=== PATIENT | female | born 1935 | race Hispanic/Latino ===

== ENCOUNTER 2018-07-17 16:27 | Inpatient (IN) | payer MEDICARE, OTHER ==
[2018-07-17 16:41] VITALS: BMI 29.9
--- NOTE | 2018-07-17 17:53 | ED PDOC ---
Arrival/HPI - General Chief Complaint: Medical Clearance Time Seen by Provider: 07/17/18 17:14 Historian: Patient - History of Present Illness Narrative History of Present Illness (Text): 07/17/18 18:07 82 yr old female w/ hx of hysterectomy, appendectomy, R knee replacement, diverticulitis 4 weeks prior and recent shingles w/ famicovir rx p/w hypotension , sent in from Dr's office. Pt went to PMD office today for first time- Dr. Ricci and was sent to ER due to hypotension 80/50s, belly pain, and nausea. Pt states she has not had a BM since friday, last BM was non-bloody and non dark. Pt notes she has also had nausea, with vomiting over the same time period. She notes she has not urinated in 2d as well. She denies any bloody discharge or dysuria. She notes that last week she had an itchiness around her throat, bilaterally on her neck and she saw her reproductive healthcare assistant in [place]. She denies any rash at any point in time, but was started on Famicicovir 2d prior. Ever since she started famicicovir she notes her current symptoms started. She notes mild cp, but no sob, no orthopnea, pnd or leg swelling. No fever, chills or night sweats. No vaginal d/c. No other complaints. Time/Duration: Other (2d) Symptom Onset: Gradual Past Medical History - Cardiac Hx Cardiac Disorders: Yes ("heart skips a beat") Hx Pacemaker: No - Pulmonary Hx Respiratory Disorders: No - Neurological Hx Neurological Disorder: No Hx Paralysis: No - HEENT Hx HEENT Disorder: Yes (glasses) - Hematological/Oncological Hx Blood Transfusions: No Hx Blood Transfusion Reaction: No - Integumentary Other/Comment: surgical incision lower abd - Musculoskeletal/Rheumatological Hx Musculoskeletal Disorders: No - Gastrointestinal Hx Gastrointestinal Disorders: Yes (DIVERTICULITIS,CONSTIPATION,GERD,) - Genitourinary/Gynecological Hx Genitourinary Disorders: No Hx Reproductive Disorders: No - Psychiatric Hx Emotional Abuse: No Hx Physical Abuse: No Hx Substance Use: No - Surgical History Hx Appendectomy: Yes Hx Orthopedic Surgery: Yes (right knee replacement 2010) - Anesthesia Hx Anesthesia Reactions: Yes (N/V AFTER 1ST D&C) Hx Malignant Hyperthermia: No - Suicidal Assessment Feels Threatened In Home Enviroment: No Family/Social History Family/Social History: Unknown Family HX Smoking Status: Former Smoker Hx Alcohol Use: No Hx Substance Use: No Allergies/Home Meds Allergies/Adverse Reactions: Allergies Penicillins Allergy (Severe, Verified 11/12/16 08:10) SWELLING Sulfa (Sulfonamide Antibiotics) Allergy (Intermediate, Verified 11/12/16 08:10) RASH Home Medications: Home Meds Medication Instructions Recorded Confirmed Esomeprazole Magnesium [Nexium] 20 mg PO QOTHERDAY 08/26/14 01/28/17 Fluticasone/Vilanterol [Breo 1 each IH DAILY 11/12/16 01/28/17 Ellipta 100-25 Mcg INH] Ranitidine HCl [Zantac] 150 mg PO QOTHERDAY 01/23/17 01/28/17 Review of Systems - Review of Systems Constitutional: Normal Eyes: Normal ENT: Normal Respiratory: Normal Cardiovascular: Chest Pain Gastrointestinal: Abdominal Pain, Constipation, Nausea Genitourinary Female: Urine Output Changes Musculoskeletal: Normal Skin: Normal Neurological: Normal Endocrine: Normal Hemo/Lymphatic: Normal Psychiatric: Normal Physical Exam Vital Signs Temp Pulse Resp BP Pulse Ox 07/17/18 21:04 98 H 18 130/65 97 07/17/18 19:45 98.3 F 104 H 18 127/67 95 07/17/18 18:44 98.6 F 107 H 20 96 07/17/18 16:39 98.5 F 110 H 20 104/57 L 96 Temperature: Afebrile Blood Pressure: Normal Pulse: Regular Respiratory Rate: Normal Appearance: Positive for: Well-Appearing, Non-Toxic, Comfortable Pain Distress: None Mental Status: Positive for: Alert and Oriented X 3 - Systems Exam Head: Present: Atraumatic, Normocephalic Pupils: Present: PERRL Extroacular Muscles: Present: EOMI Conjunctiva: Present: Normal Mouth: Present: Moist Mucous Membranes Neck: Present: Normal Range of Motion Respiratory/Chest: Present: Clear to Auscultation, Good Air Exchange. No: Respiratory Distress, Accessory Muscle Use Cardiovascular: Present: Regular Rate and Rhythm, Normal S1, S2. No: Murmurs Abdomen: Present: Tenderness (diffuse abdominal pain), Distention. No: Peritoneal Signs Back: Present: Normal Inspection Upper Extremity: Present: Normal Inspection. No: Cyanosis, Edema Lower Extremity: Present: Normal Inspection. No: Edema Neurological: Present: GCS=15, CN II-XII Intact, Speech Normal Skin: Present: Warm, Dry, Normal Color. No: Rashes Psychiatric: Present: Alert, Oriented x 3, Normal Insight, Normal Concentration Medical Decision Making ED Course and Treatment: 07/17/18 18:19 82 yr old female w/ hx of appendectomy, hysterectomy, hx of diverticulitis and shingles p/w abd pain, distension, hypotension, constipation and anuria. Pressures improved. Will seek imaging and labs. ?constipation/sbo given constipation. No hx of HTN, no bounding abdomen on exam, but will ct to examine for AAA. ?FOX given anuria ,vomiting. Pending imaging and blood work. EKG: Ordered, reviewed, and independently interpreted the EKG. Rate : 103 BPM Rhythm : Sinus tachycardia. Interpretation : No ST-segment elevations or depressions, no T-wave inversions, normal intervals. Comparison : No previous EKG for comparison. 07/17/18 19:23 SIRS+- Sepsis code called. Penicillin allergy: Azactam and vanc ordered. Penicillin allergy. Cr. 1.8- CT changed to non-con BNP 2000+ fluids d/c- 07/17/2018 20:32 Abd/Pelvis CT IMPRESSION: 1. There are large gallstone with soft tissue density within the gallbladder, there is slight pericholecystic infiltration of fat. The findings are concerning for cholecystitis. Ultrasound correlation is recommended. 2. Small amount of free fluid in the cul-de-sac. Dictator: Susana Verdugo MD Appreciate consult w/ Surgery- to see pt. Seen by surgical coordinator: US ordered. Appreciate consult w/ Dr. Ricci: to admit to her service under tele. Feroz giordano to follow as surgeon. Consult placed. harsha Otto ordered per PMD request. - Lab Interpretations Lab Results: 07/17/18 18:41 07/17/18 18:41 Lab Results 07/17/18 18:41: TSH 3rd Generation 0.48 07/17/18 18:41: Sodium 132, Chloride 93 L, Potassium 4.4, Carbon Dioxide 25, Anion Gap 18, BUN 23 H, Creatinine 1.8 H, Est GFR ( Amer) 33, Est GFR ( Non-Af Amer) 27, Random Glucose 107, Calcium 9.3, Magnesium 1.8, Total Bilirubin 1.7 H, AST 32, ALT 15, Alkaline Phosphatase 73, Troponin I < 0.01, NT- Pro-B Natriuret Pep 2460 H, Total Protein 8.2, Albumin 4.4, Globulin 3.8, Albumin/Globulin Ratio 1.2, Lipase 26 07/17/18 18:41: pO2 35, VBG pH 7.34, VBG pCO2 53.0, VBG HCO3 28.6 H, VBG Total CO2 30.2 H, VBG O2 Sat (Calc) 54.4, VBG Base Excess 1.8, VBG Potassium 4.8, Sodium 129.0 L, Chloride 95.0 L, Glucose 111 H, Lactate 1.8, FiO2 21.0, Venous Blood Potassium 4.8 07/17/18 18:41: WBC 25.8 H* D, RBC 5.22, Hgb 12.9, Hct 39.0, MCV 74.7 L, MCH 24.7 L, MCHC 33.1, RDW 20.1 H, Plt Count 258, Gran % 81.5 H, Lymph % (Auto) 8.8 L, [place] % (Auto) 9.6 H, Eos % (Auto) 0.0 L, Baso % (Auto) 0.1, Gran # 21.07 H, Lymph # (Auto) 2.3, [place] # (Auto) 2.5 H, Eos # (Auto) 0.0, Baso # (Auto) 0.02 - RAD Interpretation Radiology Orders: 07/17/18 17:46 CHEST TWO VIEWS (PA/LAT) [RAD] Stat 07/17/18 19:19 ABD & PELVIS W/O PO OR IV CONT [CT] Stat 07/17/18 20:43 GALL BLADDER [US] Stat - Medication Orders Current Medication Orders: Ciprofloxacin (Cipro 400mg/200ml Dsw) 400 mg in 200 mls @ 133.3 mls/hr IVPB Q12 ROSALINDA PRN Reason: Protocol Stop: 07/17/18 23:31 Metronidazole (Flagyl) 500 mg in 100 mls @ 100 mls/hr IVPB STAT STA PRN Reason: Protocol Stop: 07/17/18 22:22 Ciprofloxacin (Cipro 400mg/200ml Dsw) 400 mg in 200 mls @ 133.3 mls/hr IVPB Q12 ROSALINDA PRN Reason: Protocol Stop: 07/18/18 11:31 Metronidazole (Flagyl) 500 mg in 100 mls @ 100 mls/hr IVPB Q8 ROSALINDA PRN Reason: Protocol Stop: 07/21/18 06:01 Lactated Ringer's (Lactated Ringer's) 1,000 mls @ 100 mls/hr IV .Q10H ROSALINDA Sodium Chloride (Sodium Chloride 0.9%) 500 mls @ 999 mls/hr IV .Q31M STA Stop: 07/17/18 22:02 Morphine Sulfate (Morphine) 2 mg IVP Q4H PRN PRN Reason: Pain, moderate (4-7) Ondansetron HCl (Zofran Inj) 4 mg IVP Q4H PRN PRN Reason: Nausea/Vomiting Discontinued Medications Sodium Chloride (Sodium Chloride 0.9%) 250 mls @ 50 mls/hr IV .Q5H [facility] Last Admin: 07/17/18 18:30 Dose: 50 mls/hr eMAR Start Stop Document 07/17/18 18:30 (Rec: 07/17/18 18:30 [email or web address] Intravenous Solution Start Date 07/17/18 Start Time 18:30 Aztreonam (Azactam 1 Gm) 100 mls @ 100 mls/hr IVPB STAT STA PRN Reason: Protocol Stop: 07/17/18 20:18 Last Admin: 07/17/18 19:44 Dose: 100 mls/hr eMAR Start Stop Document 07/17/18 19:44 (Rec: 07/17/18 19:44 [email or web address] Intravenous Solution Start Date 07/17/18 Start Time 19:44 Vancomycin HCl (Vancomycin 1gm) 1 gm in 250 mls @ 167 mls/hr IVPB STAT STA PRN Reason: Protocol Stop: 07/17/18 20:48 Ondansetron HCl (Zofran Inj) 4 mg IVP STAT STA Stop: 07/17/18 18:09 Last Admin: 07/17/18 18:29 Dose: 4 mg IVP Administration Document 07/17/18 18:29 (Rec: 07/17/18 18:29 [email or web address] Charges for Administration # of IVP Administrations 1 Disposition/Present on Arrival - Present on Arrival Any Indicators Present on Arrival: No History of DVT/PE: No History of Uncontrolled Diabetes: No Urinary Catheter: Yes (inserted in or) History of Decub. Ulcer: No History Surgical Site Infection Following: None - Disposition Have Diagnosis and Disposition been Completed?: Yes Diagnosis: Sepsis Disposition Time: 20:32 Patient Plan: Admission Condition: FAIR
[2018-07-17] MEDS ORDERED: Iohexol 240 (50 ml) ONE (17:57)
[2018-07-17] MEDS ORDERED: Sodium Chloride 0.9% 250 ML IV SCH (18:00)
[2018-07-17 18:50] LABS: VENOUS BLOOD GAS BASE EXCESS 1.8 mmol/L (0.0-2.0); VENOUS BLOOD GAS PO2 35 mm/Hg (30-55); VENOUS BLOOD PH 7.34 (7.32-7.43)
[2018-07-17 18:58] LABS: BASO # 0.02 K/mm3 (0.0-2.0); BASO % 0.1 % (0.0-3.0); GRAN # 21.07 (1.4-6.5); GRAN % 81.5 % (50.0-68.0); HEMOGLOBIN 12.9 g/dL (12.0-16.0); LYMPH # 2.3 (1.2-3.4); LYMPH % 8.8 % (22.0-35.0); MEAN CELL VOLUME 74.7 fl (80.0-105.0); MEAN CORPUSCULAR HEMOGLOBIN 24.7 pg (25.0-35.0); MEAN CORPUSCULAR HGB CONC 33.1 g/dl (31.0-37.0); MONO # 2.5 (0.1-0.6); MONO % 9.6 % (1.0-6.0); PLATELET COUNT 258 10^3/uL (120.0-450.0); RBC 5.22 10^6/uL (3.5-6.1); RED CELL DISTRIBUTION WIDTH 20.1 % (11.5-14.5)
[2018-07-17 19:01] LABS: WHITE BLOOD COUNT 25.8 10^3/ul (4.5-11.0)
[2018-07-17 19:02] LABS: ALB/GLOB RATIO 1.2 (1.1-1.8); ALBUMIN 4.4 g/dL (3.0-4.8); CALCIUM 9.3 mg/dL (8.4-10.5); GFR NON-AFRICAN AMERICAN 27; LIPASE 26 U/L (23-300)
[2018-07-17 19:08] LABS: ALT/SGPT 15 U/L (7-56); AST/SGOT 32 U/L (14-36); BLOOD UREA NITROGEN 23 mg/dL (7-21)
[2018-07-17 19:14] LABS: B-TYPE NATRIURETIC PEPTIDE 2460 pg/mL (0-450); TROPONIN I < 0.01 ng/mL
[2018-07-17] MEDS ORDERED: Iohexol 350 MG/100 ML VIAL ONE (19:16)
[2018-07-17] MEDS ORDERED: Vancomycin 1gm in NS 250ml 1 GM/250 ML BAG IVPB STA (19:19)
[2018-07-17] MEDS ORDERED: Aztreonam 1 Gm in NS 100mL 100 ML IVPB STA (19:19)
[2018-07-17] MEDS ORDERED: metroNIDAZOLE IV 500 mg/100 ml 500 MG/100 ML BAG IVPB STA (21:23)
[2018-07-17] MEDS ORDERED: Sodium Chloride 0.9% 500 ML IV STA (21:32)
[2018-07-17] MEDS ORDERED: Morphine 2 mg/ml ISec IVP PRN (21:44)
[2018-07-17] MEDS ORDERED: Lactated Ringer's 1,000 ML IV SCH (21:45)
--- NOTE | 2018-07-17 21:46 | CP.PCM.CON ---
<Jayshree Blue - Last Filed: 07/18/18 08:09> History of Present Illness - History of Present Illness History of Present Illness: Surgery Consult: Dr. Zavala Pt is an 82F with PMHx significant for diverticulosis & asthma who [place] [facility] [place] complaints of abdominal pain & nausea/vomiting x 4 days. Pt states she was started on an antiviral medication last week for possible shingles due to having generalized itching but no rash. However, starting Friday she started having episodes of abdominal pain with nausea and several episodes of vomiting that continued as the week progressed. She reports several episodes of non- bloody, non-bilious vomiting and inability to tolerate PO intake. Pt went to her PMD Dr. Ricci's office today and was found to be hypotensive and sent to the ER. In the ER, pt found to have a WBC of 25.[address] abdomen/pelvis concerning for acute cholecystitis. Surgery called to evaluate. Currently, pt is resting comfortably in her bed. Blood pressure improved since arrival to the ER with current reading of 130/87. Pt states she feels a little better and her last episode of vomiting was 2 hrs prior when she drank contrast. Pt states her recent colonoscopy was last month and only showed diverticulosis. Denies fevers , chills, chest pain or SOB. PMHx: diverticulosis, asthma PSHx: appendectomy, hysterectomy, R knee replacement SocialHx: former smoker, quit 30yrs ago, denies EtOH/drugs ALL: PCN, Sulfa Review of Systems - Review of Systems All systems: reviewed and no additional remarkable complaints except (as per HPI ) Past Patient History - Past Social History Smoking Status: Former Smoker - CARDIAC Hx Cardiac Disorders: Yes ("heart skips a beat") Hx Pacemaker: No - PULMONARY Hx Asthma: Yes - NEUROLOGICAL Hx Neurological Disorder: No Hx Paralysis: No - HEENT Hx HEENT Problems: Yes (glasses) - HEMATOLOGICAL/ONCOLOGICAL Hx Blood Transfusions: No Hx Blood Transfusion Reaction: No - INTEGUMENTARY Other/Comment: surgical incision lower abd - MUSCULOSKELETAL/RHEUMATOLOGICAL Hx Musculoskeletal Disorders: No - GASTROINTESTINAL Hx Gastrointestinal Disorders: Yes (DIVERTICULITIS,CONSTIPATION,GERD,) - GENITOURINARY/GYNECOLOGICAL Hx Genitourinary Disorders: No Hx Reproductive Disorders: No - PSYCHIATRIC Hx Emotional Abuse: No Hx Physical Abuse: No Hx Substance Use: No - SURGICAL HISTORY Hx Appendectomy: Yes Hx Orthopedic Surgery: Yes (right knee replacement 2010) - ANESTHESIA Hx Anesthesia Reactions: Yes (N/V AFTER 1ST D&C) Hx Malignant Hyperthermia: No Meds Allergies/Adverse Reactions: Allergies Allergy/AdvReac Type Severity Reaction Status Date / Time Penicillins Allergy Severe SWELLING Verified 11/12/16 08:10 Sulfa (Sulfonamide Allergy Intermediate RASH Verified 11/12/16 08:10 Antibiotics) - Medications Medications: Current Medications Ciprofloxacin (Cipro 400mg/200ml Dsw) 400 mg in 200 mls @ 133.3 mls/hr IVPB Q12 ROSALINDA PRN Reason: Protocol Stop: 07/17/18 23:31 Metronidazole (Flagyl) 500 mg in 100 mls @ 100 mls/hr IVPB STAT STA PRN Reason: Protocol Stop: 07/17/18 22:22 Ciprofloxacin (Cipro 400mg/200ml Dsw) 400 mg in 200 mls @ 133.3 mls/hr IVPB Q12 ROSALINDA PRN Reason: Protocol Stop: 07/21/18 10:01 Metronidazole (Flagyl) 500 mg in 100 mls @ 100 mls/hr IVPB Q8 ROSALINDA PRN Reason: Protocol Stop: 07/21/18 06:01 Lactated Ringer's (Lactated Ringer's) 1,000 mls @ 100 mls/hr IV .Q10H ROSALINDA Sodium Chloride (Sodium Chloride 0.9%) 500 mls @ 999 mls/hr IV .Q31M STA Stop: 07/17/18 22:02 Physical Exam - Constitutional Appears: Well, No Acute Distress - Head Exam Head Exam: ATRAUMATIC, NORMOCEPHALIC - Eye Exam Eye Exam: Normal appearance - ENT Exam ENT Exam: Mucous Membranes Moist - Respiratory Exam Respiratory Exam: NORMAL BREATHING PATTERN - Cardiovascular Exam Cardiovascular Exam: Tachycardia - GI/Abdominal Exam GI & Abdominal Exam: Soft, Tenderness (generalized ). absent: Distended, Guarding, Rebound - Neurological Exam Neurological exam: Alert, Oriented x3 - Skin Skin Exam: Dry, Warm Results - Vital Signs Recent Vital Signs: Last Vital Signs Temp 98.3 F 07/17/18 19:45 Pulse 98 H 07/17/18 21:04 Resp 18 07/17/18 21:04 BP 130/65 07/17/18 21:04 Pulse Ox 97 07/17/18 21:04 - Labs Result Diagrams: 07/18/18 06:00 07/18/18 06:00 Labs: Laboratory Results - last 24 hr 07/17/18 07/17/18 07/17/18 18:41 18:41 18:41 WBC 25.8 H* D RBC 5.22 Hgb 12.9 Hct 39.0 MCV 74.7 L MCH 24.7 L MCHC 33.1 RDW 20.1 H Plt Count 258 Gran % 81.5 H Lymph % (Auto) 8.8 L [place] % (Auto) 9.6 H Eos % (Auto) 0.0 L Baso % (Auto) 0.1 Gran # 21.07 H Lymph # (Auto) 2.3 [place] # (Auto) 2.5 H Eos # (Auto) 0.0 Baso # (Auto) 0.02 pO2 35 VBG pH 7.34 VBG pCO2 53.0 VBG HCO3 28.6 H VBG Total CO2 30.2 H VBG O2 Sat (Calc) 54.4 VBG Base Excess 1.8 VBG Potassium 4.8 Sodium 129.0 L 132 Chloride 95.0 L 93 L Glucose 111 H Lactate 1.8 FiO2 21.0 Potassium 4.4 Carbon Dioxide 25 Anion Gap 18 BUN 23 H Creatinine 1.8 H Est GFR ( Amer) 33 Est GFR (Non-Af Amer) 27 Random Glucose 107 Calcium 9.3 Magnesium 1.8 Total Bilirubin 1.7 H AST 32 ALT 15 Alkaline Phosphatase 73 Troponin I < 0.01 NT-Pro-B Natriuret Pep 2460 H Total Protein 8.2 Albumin 4.4 Globulin 3.8 Albumin/Globulin Ratio 1.2 Lipase 26 TSH 3rd Generation Venous Blood Potassium 4.8 07/17/18 18:41 WBC RBC Hgb Hct MCV MCH MCHC RDW Plt Count Gran % Lymph % (Auto) [place] % (Auto) Eos % (Auto) Baso % (Auto) Gran # Lymph # (Auto) [place] # (Auto) Eos # (Auto) Baso # (Auto) pO2 VBG pH VBG pCO2 VBG HCO3 VBG Total CO2 VBG O2 Sat (Calc) VBG Base Excess VBG Potassium Sodium Chloride Glucose Lactate FiO2 Potassium Carbon Dioxide Anion Gap BUN Creatinine Est GFR ( Amer) Est GFR (Non-Af Amer) Random Glucose Calcium Magnesium Total Bilirubin AST ALT Alkaline Phosphatase Troponin I NT-Pro-B Natriuret Pep Total Protein Albumin Globulin Albumin/Globulin Ratio Lipase TSH 3rd Generation 0.48 Venous Blood Potassium - Imaging and Cardiology CT scan - abdomen Status: Image reviewed by me Assessment & Plan - Assessment and Plan (Free Text) Assessment: 82F with acute cholecystitis Plan: - IVF, IV ABX - Keep NPO - Insert Cardoso and monitor strict Is & Os - Monitor WBC and T bili, AM labs ordered - f/u US of the - d/w Dr. Lucas Blue <Feroz Zavala - Last Filed: 07/20/18 10:12> Meds - Medications Medications: Current Medications Pantoprazole Sodium (Protonix 40mg Ivpb) 40 mg in 100 mls @ 200 mls/hr IVPB 0600 [facility] Last Admin: 07/20/18 05:33 Dose: 200 mls/hr Meropenem (Merrem Iv 1 Gm Premix) 50 mls @ 100 mls/hr IVPB Q12 ROSALINDA PRN Reason: Protocol Stop: 07/27/18 10:01 Last Admin: 07/19/18 21:25 Dose: 100 mls/hr Lactated Ringer's (Lactated Ringer's) 1,000 mls @ 75 mls/hr IV .[id number] [facility] Last Admin: 07/20/18 05:34 Dose: 75 mls/hr Morphine Sulfate (Morphine) 2 mg IVP Q4H PRN PRN Reason: Pain, moderate (4-7) Ondansetron HCl (Zofran Inj) 4 mg IVP Q4H PRN PRN Reason: Nausea/Vomiting Results - Vital Signs Recent Vital Signs: Last Vital Signs Temp 99 F 07/20/18 06:00 Pulse 84 07/20/18 06:00 Resp 20 07/20/18 06:00 BP 121/61 07/20/18 06:00 Pulse Ox 92 L 07/20/18 06:00 - Labs Result Diagrams: 07/20/18 06:50 07/20/18 06:50 Labs: Laboratory Results - last 24 hr 07/20/18 07/20/18 06:50 06:50 WBC 8.7 D RBC 3.94 Hgb 9.3 L Hct 29.7 L MCV 75.4 L MCH 23.6 L MCHC 31.3 RDW 19.7 H Plt Count 175 MPV 9.5 Gran % 73.5 H Lymph % (Auto) 9.6 L [place] % (Auto) 15.8 H Eos % (Auto) 0.9 L Baso % (Auto) 0.2 Gran # 6.35 Lymph # (Auto) 0.8 L [place] # (Auto) 1.4 H Eos # (Auto) 0.1 Baso # (Auto) 0.02 Sodium 136 Potassium 4.4 Chloride 103 Carbon Dioxide 26 Anion Gap 11 BUN 20 Creatinine 1.0 Est GFR ( Amer) > 60 Est GFR (Non-Af Amer) 53 Random Glucose 92 Calcium 8.0 L Phosphorus 2.7 Magnesium 1.9 Total Bilirubin 1.2 AST 78 H D ALT 68 H Alkaline Phosphatase 72 Total Protein 5.7 L Albumin 2.7 L Globulin 3.0 Albumin/Globulin Ratio 0.9 L Assessment & Plan - Assessment and Plan (Free Text) Assessment: Dx Sepsis- Cholecystitis/UTI Pt knew of gallstones 2 years ago but did not have any c/o Plan: Conservative Rx IF possible/IV [id number] evaluation This consult done under my direct supervision Dayo Zavala MD FACS
[2018-07-17] MEDS ORDERED: Ciprofloxacin 400mg/200ml D5W 400 MG/200 ML BAG IVPB SCH (22:00)
[2018-07-17 22:01] LABS: VENOUS BLOOD GAS BASE EXCESS 0.3 mmol/L (0.0-2.0); VENOUS BLOOD GAS PO2 36 mm/Hg (30-55); VENOUS BLOOD PH 7.35 (7.32-7.43)
[2018-07-17 22:06] LABS: PH,URINE 5.5 (4.7-8.0); URINE BILIRUBIN SMALL (NEGATIVE); URINE BLOOD LARGE (NEGATIVE); URINE GLUCOSE (UA) NEGATIVE (NEGATIVE); URINE LEUKOCYTE ESTERASE MODERATE Leu/uL (NEGATIVE); URINE PROTEIN 100 mg/dL (<30 mg/dL); URINE UROBILINOGEN 0.2 E.U./dL (<1 E.U./dL)
[2018-07-17 22:08] LABS: URINE APPEARANCE CLOUDY (CLEAR); URINE COLOR DARK YELLOW (YELLOW)
[2018-07-17 22:23] LABS: URINE BACTERIA MANY (NEG); URINE RBC 20 - 25 /hpf (0-2); URINE WBC 25 - 30 /hpf (0-6)
--- NOTE | 2018-07-18 03:22 | HP ---
Copied To: Shawna Ricci MD Attending MD: Shawna Ricci MD HISTORY OF PRESENT ILLNESS: The patient is 82 years old, who was seen in my office first time, complained of feeling very weak, dizzy, lightheaded. She states she was having pain in her right flank. She went to see Dr. Lamar who thought she has shingles, gave her Famvir along with ibuprofen and hydroxyzine. The patient states she did not feel any relief, she started to have nausea, unable to hold any food for last two to three days, decreased appetite, was having chills at night, so she decided to come to emergency room. The patient states she was feeling weak and dizzy that is why she did not drive to my office. She took a cab from [place] to see me. The patient states usually she is very healthy and very energetic, but feels very drained and has generalized weakness. Complained of nausea, poor appetite, abdominal discomfort. PAST MEDICAL HISTORY: Significant for, 1. Diverticulosis. 2. Status post appendectomy. 3. Status post hysterectomy. 4. Gastritis. ALLERGIES: SHE IS ALLERGIC TO PENICILLIN AND SULFA DRUGS. MEDICATION AT HOME: She only takes Zantac, Breo and Nexium as needed. Currently, she is on Famvir and hydroxyzine. SOCIAL HISTORY: She lives by herself. Denies smoking, used to be a heavy smoker in the past, but quit 30 years ago. Socially drinks. PHYSICAL EXAMINATION: GENERAL: She looks pale, dehydrated. VITAL SIGNS: She is afebrile; pulse 104; respirations 20; blood pressure in the office was 80/60, in the ER, it was found to be 104/57. LUNGS: Bilateral good airflow. No rhonchi or crackle. HEART: S1 and S2 audible. ABDOMEN: Soft, but has palpable discomfort in all quadrants including right upper quadrant, left upper quadrant, left lower quadrant and suprapubic discomfort. NEUROLOGICAL: She is awake, alert, oriented, communicative, ambulatory. EXTREMITIES: Bilateral leg, no edema. LABORATORY EXAM: WBC is 25.8, hemoglobin 12.9, hematocrit 39, platelets of 258. Chemistry: Sodium 132, potassium 4.4, chloride 93, CO2 of 25, BUN 23, creatinine 1.8, blood sugar of 107. Total bili 1.7. BNP 2460. CT scan of the abdomen and pelvis done that shows cholelithiasis. ASSESSMENT: 1. Abdominal pain, rule out cholecystitis, rule out diverticulitis. 2. Chronic anemia. 3. Dehydration. PLAN: The patient will be admitted on telemetry. We will start IV fluids, IV antibiotics. Blood cultures, urine cultures are done. Get surgical consult. We will follow up electrolytes in the a.m. We will follow up the patient in the a.m. Shawna Ricci MD
--- NOTE | 2018-07-18 04:20 | PCM.SEPTIC ---
Sepsis Progress Note - Reassessment Type Date of Evaluation: 07/18/18 Time of Evaluation: 00:20 Reassessment Type: Non-invasive reassessment - Non Invasive Reassessment Were the most recent vital sign reviewed: Yes Vital Sign (Latest): Temp Pulse Resp BP Pulse Ox 98.9 F 100 H 20 122/73 95 07/18/18 00:01 07/18/18 02:00 07/18/18 00:01 07/18/18 00:01 07/18/18 00:01 Cardiovascular: Yes: Regular Rate, Rhythm Respiratory: Yes: Normal Breath Sounds Capillary Refill: Normal (Less than 2 sec) Pulses: Normal Radial, Normal Dorsalis Pedis, Normal Posterior Tibialis Skin: Warm, Dry, Pale Was a passive leg raise performed or was a fluid challenge performed within 6 hrs of the initial fluid bolus: No Fluid Challenge performed: No
[2018-07-18] MEDS: Lactated Ringer's 1,000 ML IV SCH ×3 (05:30→18:05)
[2018-07-18] MEDS: Pantoprazole 40mg/100mL NS 40 MG/100 ML BAG IVPB SCH (05:57)
[2018-07-18] MEDS ORDERED: metroNIDAZOLE IV 500 mg/100 ml 500 MG/100 ML BAG IVPB SCH (06:00)
[2018-07-18 07:09] LABS: BASO # 0.01 K/mm3 (0.0-2.0); BASO % 0.1 % (0.0-3.0); EOS % 0.2 % (1.5-5.0); GRAN # 15.91 (1.4-6.5); GRAN % 80.2 % (50.0-68.0); HEMOGLOBIN 11.4 g/dL (12.0-16.0); LYMPH # 0.9 (1.2-3.4); LYMPH % 4.6 % (22.0-35.0); MEAN CELL VOLUME 73.9 fl (80.0-105.0); MEAN CORPUSCULAR HEMOGLOBIN 24.2 pg (25.0-35.0); MEAN CORPUSCULAR HGB CONC 32.7 g/dl (31.0-37.0); MEAN PLATELET VOLUME 11.2 fl (7.0-11.0); MONO % 14.9 % (1.0-6.0); PLATELET COUNT 184 10^3/uL (120.0-450.0); RBC 4.72 10^6/uL (3.5-6.1); RED CELL DISTRIBUTION WIDTH 19.7 % (11.5-14.5); WHITE BLOOD COUNT 19.8 10^3/ul (4.5-11.0)
[2018-07-18 07:27] LABS: ALB/GLOB RATIO 1.1 (1.1-1.8); CALCIUM 8.3 mg/dL (8.4-10.5)
[2018-07-18 09:08] LABS: NEUTROPHIL 81 % (50.0-70.0)
[2018-07-18 09:09] LABS: ANISOCYTOSIS 1+; ATYPICAL LYMPHOCYTE 2 % (0.0-0.0); HYPOCHROMIA 1+; LARGE PLATELETS PRESENT; LYMPHOCYTE 7 % (22.0-35.0); MICROCYTOSIS 1+; MONOCYTE 10 % (1.0-6.0); PLATELET ESTIMATE NORMAL (NORMAL)
[2018-07-18] MEDS ORDERED: Ciprofloxacin 400mg/200ml D5W 400 MG/200 ML BAG IVPB SCH (10:00)
--- NOTE | 2018-07-18 10:32 | CARD ---
APPROVED REPORT Date of service: 07/17/2018 EKG Measurement Heart [id number] <Conclusion> Sinus tachycardia Inferior infarct, age undetermined Abnormal ECG
[2018-07-18] MEDS: Meropenem IV 1 gm in NS 50 ML IVPB SCH ×2 (10:35→21:35)
--- NOTE | 2018-07-18 12:04 | PN ---
Copied To: Shawna Ricci MD Attending MD: Shawna Ricci MD DATE: 07/18/2018 SUBJECTIVE: The patient is 82 years old, seen and examined, still has abdominal pain, better than last night. Complained of some irritation at the catheter site. PHYSICAL EXAMINATION: VITAL SIGNS: She has temperature 99.1, pulse 100, respirations 18, blood pressure 105/63. LUNGS: Bilateral fair airflow. No rhonchi or crackle. HEART: S1 and S2 audible. ABDOMEN: Soft. She has right upper quadrant discomfort with rebound tenderness. Bowel sounds are positive. NEUROLOGICAL: She is awake, alert, oriented, communicative. LABORATORY EXAM: WBC is 19.8, hemoglobin 11.4, hematocrit 34.9, platelet 184. Chemistry: Sodium 133, potassium 4.2, chloride 98, CO2 of 23, BUN 27, creatinine 1.4, blood sugar of 76. Total bili was 1.7, it is 1.3 now. Urinalysis shows positive nitrites, moderate leukocyte. She had CT scan of the abdomen and ultrasound of gallbladder shows cholelithiasis. ASSESSMENT: 1. Right upper quadrant pain, probably acute cholecystitis. 2. Pyelonephritis. 3. Leukocytosis. 4. Dehydration, improving. 5. History of hysterectomy. PLAN: Currently, the patient is on IV fluid. She is on meropenem. She is on Protonix. We will start her on liquid diet and we will order for a HIDA scan. We will continue to give antibiotic and fluid. Follow up electrolyte in the a.m. Awaiting surgical input. Shawna Ricci MD
--- NOTE | 2018-07-18 14:41 | CON ---
Copied To: Laz Chavira MD Attending MD: Laz Chavira MD DATE: 07/18/2018 LOCATION: The patient is in bed in [facility], bed 1. CHIEF COMPLAINT: Abdominal pain x5 days' duration. HISTORY OF PRESENT ILLNESS: This is an 82-year-old female with history of diverticulosis, history of gastritis, history of shingles, anemia, asthma, hypertension, who is admitted with abdominal pain x5 days' duration associated with nausea, vomiting. No diarrhea. No bright red blood per rectum. No melena. REVIEW OF SYSTEMS: A 12-point review of systems is performed. She has had no shortness of breath, cough, chest pain. No fevers. No chills. She is complaining of dysuria, but no frequency. No new back pain. No rash. No new joint pain. No headaches or blurred vision. No neck pain. PAST MEDICAL HISTORY: Significant for diverticulosis, gastritis, shingles, anemia, asthma, hypertension. PAST SURGICAL HISTORY: Significant for appendectomy at the age of 7, hysterectomy in 2014, right knee replacement in 2010. MEDICATIONS AT HOME: Include the patient to be on inhaler, Nexium and Zantac, questionable. SOCIAL HISTORY: No travel history. She lives by herself. PHYSICAL EXAMINATION: GENERAL: On exam, the patient is in bed. VITAL SIGNS: Temperature of 99.1; heart rate of 97, it was up to 110; respiratory rate 20; blood pressure is 122/73. HEENT: Examination of HEENT is unremarkable. NECK: Supple. LUNGS: Have decreased breath sounds. HEART: Normal S1, S2. ABDOMEN: Diffuse tenderness. No rebound. No guarding. No masses. LABORATORY EXAMINATION: Reveals a white count of 25,800, hemoglobin of 12, platelets of 258. The patient has 81% granulocytosis. Blood gases are reviewed. Chemistries reveals the patient has a creatinine of 1.8, before that it was 1.1. BNP is 2460. LFTs are normal. Alk phos is normal. Urinalysis reveals 25-30 wbc's, many bacteria. The patient had a CAT scan of the abdomen, the results are pending. ALLERGIES: THE PATIENT IS ALLERGIC TO PENICILLIN, SHE DEVELOPS A RASH AND SULFA, SHE STATES SHE DOES NOT KNOW, WHAT KIND OF REACTION SHE HAS HAD, SHE DOES NOT REMEMBER. Emergency room chart is reviewed. The patient was given a dose of vancomycin in the emergency room and aztreonam. The emergency room unofficial CAT scan reading shows a large gallstone, soft tissue density within the gallbladder, slight pericholecystic infiltration concerning for cholecystitis. ASSESSMENT AND PLAN: An 82-year-old female with history of diverticulosis, gastritis, shingles, anemia, asthma and hypertension. Admitted with abdominal pain, tachycardia and leukocytosis. #1 is severe sepsis with urine as the source with dysuria and positive urinalysis. The patient was allergic to penicillin and sulfa. The patient with acute kidney injury and the last creatinine was 1.1, is up to 1.8. Must also rule out GI pathology, acute cholecystitis. We will treat the patient with meropenem and discontinue the Cipro. Pending blood cultures, urine cultures, CAT scan of the abdomen and results. Case discussed with surgical residents. We will follow closely with you. Laz Chavira MD
--- NOTE | 2018-07-18 16:51 | RAD ---
Date of service: 07/17/2018 HISTORY: Intermittent chest pain COMPARISON: Chest radiograph 11/17/2017 TECHNIQUE: Chest PA and lateral FINDINGS: LUNGS: Poor inspiration with low lung volumes, crowded bronchovascular markings and mild bibasilar atelectasis on. Elevation right hemidiaphragm possibly due to eventration. Comparison made with PLEURA: No significant pleural effusion identified. No pneumothorax apparent. CARDIOVASCULAR: Cardiomegaly OSSEOUS STRUCTURES: No significant abnormalities. VISUALIZED UPPER ABDOMEN: Normal. OTHER FINDINGS: None. IMPRESSION: Poor inspiration with low lung volumes, crowded bronchovascular markings and mild bibasilar atelectasis on. Elevation right hemidiaphragm possibly due to eventration. Comparison made with
--- NOTE | 2018-07-18 17:07 | US ---
Date of service: 07/17/2018 HISTORY: ct wbc 25k COMPARISON: Comparison made with prior abdominal ultrasound 09/12/[address] scan abdomen pelvis 07/17/2018 TECHNIQUE: Sonographic evaluation of the right upper quadrant of the abdomen. FINDINGS: LIVER: Measures approximately 17.1 cm in length. Smooth contour though increased echotexture likely secondary to fatty infiltration however other infiltrative hepatocellular disease process not excluded. No mass. No intrahepatic bile duct dilatation. GALLBLADDER: Cholelithiasis with small amount of pericholecystic fluid ; rule out cholecystitis. . No sonographic Womack sign COMMON BILE DUCT: Measures 6.3 mm. No stones. No dilatation. PANCREAS: Pancreas poorly visualized due to body habitus and bowel gas RIGHT KIDNEY: Measures 10.1 x 3.9 x 4.3 cm in length. Normal echogenicity. No calculus, mass, or hydronephrosis. AORTA: No aneurysmal dilatation. IVC: Unremarkable. OTHER FINDINGS: None . IMPRESSION: Cholelithiasis with small amount of pericholecystic fluid ; rule out cholecystitis. No sonographic Womack sign. Probable fatty infiltration however other infiltrative hepatic cellular disease process not excluded
--- NOTE | 2018-07-18 17:45 | CT ---
Date of service: 07/17/2018 PROCEDURE: CT Abdomen and Pelvis with Oral contrast. HISTORY: Abdominal pain,septic COMPARISON: Comparison CT scan abdomen pelvis dated 10/04/2015 TECHNIQUE: Contiguous axial images of the abdomen and pelvis without oral or intravenous contrast material. Additional 2D sagittal and coronal reformats generated. This CT exam was performed using one or more of the following dose reduction techniques: Automated exposure control, adjustment of the mA and/or kV according to patient size, and/or use of iterative reconstruction technique. Radiation dose: Total exam DLP = 1041.45 mGy-cm. FINDINGS: LOWER THORAX: Mild passive/ dependent type atelectasis both posterior lower lung zones. The. There is also mild linear atelectasis and or scarring both lung bases including the middle lobe and lingular regions. . LIVER: Unremarkable. No gross lesion or ductal dilatation. GALLBLADDER AND BILE DUCTS: Gallbladder is distended. Large intraluminal gallbladder calculus with layering gravel . Pericholecystic infiltration and fluid felt to be present. Findings could represent acute cholecystitis. Clinical correlation recommended. PANCREAS: Pancreas is atrophic and fatty replaced. No obvious pancreatic mass collection or calcification. SPLEEN: Unremarkable. No splenomegaly. ADRENALS: Mildly prominent bilateral adrenal glands. KIDNEYS AND URETERS: Unremarkable. No stone or hydronephrosis. BLADDER: Grossly unremarkable. REPRODUCTIVE: Unremarkable. APPENDIX: Appendix not seen with certainty on this study. No obvious infiltration changes present in the urinary bladder. . BOWEL: Evaluation of the bowel is somewhat limited due to incomplete opacification. Large hiatal hernia as mentioned above. Stomach is incompletely distended. Visualized loops of small bowel exhibit relatively normal contour and caliber. No evidence of acute mechanical small bowel obstruction. There arm of multiple colonic diverticula the bulk which arise from the sigmoid colon however right-sided colonic diverticular are also present. PERITONEUM: No gross free intraperitoneal air. There is a small amount of free fluid seen in the pelvis. LYMPH NODES: Unremarkable. No enlarged lymph nodes. VASCULATURE: Unremarkable. No aortic aneurysm. BONES: Multilevel degenerative spondylosis of the thoracic and lumbar spine. OTHER FINDINGS: None. IMPRESSION: Distended gallbladder containing intraluminal calculi with layering gravel. Pericholecystic fluid and infiltration possibly representing cholecystitis. . There is a small amount of free fluid in the cul de sac. Diverticulosis without definitive radiographic evidence of acute diverticulitis. Large hiatal hernia.
[2018-07-19] MEDS: Pantoprazole 40mg/100mL NS 40 MG/100 ML BAG IVPB SCH (05:51)
--- NOTE | 2018-07-19 07:16 | CP.PCM.PN ---
<Zacarias House - Last Filed: 07/19/18 08:22> Subjective - Date & Time of Evaluation Date of Evaluation: 07/19/18 Time of Evaluation: 07:10 - Subjective Subjective: General Surgery Note for Dr. Zavala Patient seen and examined at bedside. No acute event overnight. Patient reports still having abdominal pain. She denies fever/chills or nausea/vomting. Patient reports no BM for 1 week but is passing flatus. She is tolerating CLD. Patient is clinically improving. Objective - Vital Signs/Intake and Output Vital Signs (last 24 hours): Temp Pulse Resp BP Pulse Ox 98.7 F 95 H 20 150/69 93 L 07/19/18 06:00 07/19/18 06:00 07/19/18 06:00 07/19/18 06:00 07/19/18 06:00 Intake and Output: 07/19/18 07/19/18 06:59 18:59 Intake Total 1740 Output Total 2100 Balance -360 - Medications Medications: Current Medications Pantoprazole Sodium (Protonix 40mg Ivpb) 40 mg in 100 mls @ 200 mls/hr IVPB 0600 [facility] Last Admin: 07/19/18 05:51 Dose: 200 mls/hr Lactated Ringer's (Lactated Ringer's) 1,000 mls @ 125 mls/hr IV .Q8H [facility] Last Admin: 07/18/18 18:05 Dose: 125 mls/hr Meropenem (Merrem Iv 1 Gm Premix) 50 mls @ 100 mls/hr IVPB Q12 ROSALINDA PRN Reason: Protocol Stop: 07/27/18 10:01 Last Admin: 07/18/18 21:35 Dose: 100 mls/hr Morphine Sulfate (Morphine) 2 mg IVP Q4H PRN PRN Reason: Pain, moderate (4-7) Ondansetron HCl (Zofran Inj) 4 mg IVP Q4H PRN PRN Reason: Nausea/Vomiting - Labs Labs: 07/18/18 06:00 07/18/18 06:00 - Constitutional Appears: No Acute Distress - Head Exam Head Exam: ATRAUMATIC, NORMOCEPHALIC - Eye Exam Eye Exam: Normal appearance - ENT Exam ENT Exam: Mucous Membranes Moist - Respiratory Exam Respiratory Exam: NORMAL BREATHING PATTERN - Cardiovascular Exam Cardiovascular Exam: REGULAR RHYTHM - GI/Abdominal Exam GI & Abdominal Exam: Soft, Tenderness (epigastrium/periumbilical), Normal Bowel Sounds. absent: Distended, Firm, Guarding, Rigid, Hernia, Mass, Rebound - Extremities Exam Extremities Exam: Normal Capillary Refill - Back Exam Back Exam: absent: CVA tenderness (L), CVA tenderness (R) - Neurological Exam Neurological Exam: Alert, Awake - Psychiatric Exam Psychiatric exam: Normal Affect, Normal Mood - Skin Skin Exam: Dry, Intact, Warm Assessment and Plan - Assessment and Plan (Free Text) Assessment: 82 F who presents with abdominal pain, possible acute cholecystitis, sepsis, and UTI Plan: -CLD -Continue IV fluids -Continue IV antibiotics -Analgescis/Anti-emetics PRN -f/u HIDA -Strict I's & O's -Trend WBC (decreasing) -Further recommendations as per Dr. Lucas House PGY2 <Feroz Zavala - Last Filed: 07/20/18 10:19> Objective - Vital Signs/Intake and Output Vital Signs (last 24 hours): Temp Pulse Resp BP Pulse Ox 99 F 84 20 121/61 92 L 07/20/18 06:00 07/20/18 06:00 07/20/18 06:00 07/20/18 06:00 07/20/18 06:00 Intake and Output: 07/20/18 07/20/18 06:59 18:59 Intake Total 975 Output Total 0 Balance 975 - Medications Medications: Current Medications Pantoprazole Sodium (Protonix 40mg Ivpb) 40 mg in 100 mls @ 200 mls/hr IVPB 0600 [facility] Last Admin: 07/20/18 05:33 Dose: 200 mls/hr Meropenem (Merrem Iv 1 Gm Premix) 50 mls @ 100 mls/hr IVPB Q12 ROSALINDA PRN Reason: Protocol Stop: 07/27/18 10:01 Last Admin: 07/19/18 21:25 Dose: 100 mls/hr Lactated Ringer's (Lactated Ringer's) 1,000 mls @ 75 mls/hr IV .[id number] [facility] Last Admin: 07/20/18 05:34 Dose: 75 mls/hr Morphine Sulfate (Morphine) 2 mg IVP Q4H PRN PRN Reason: Pain, moderate (4-7) Ondansetron HCl (Zofran Inj) 4 mg IVP Q4H PRN PRN Reason: Nausea/Vomiting - Labs Labs: 07/20/18 06:50 07/20/18 06:50 Assessment and Plan - Assessment and Plan (Free Text) Assessment: Clinically Improving PH Diverticulosis/COBPD-Asthma/GERD/Uterine CA Plan HIDA/Cardiac clearance OR 07/21/2018 Pt insits on surgery before discharge Dayo Zavala MD FACS
[2018-07-19 07:36] LABS: BASO # 0.02 K/mm3 (0.0-2.0); BASO % 0.2 % (0.0-3.0); EOS # 0.1 (0.0-0.7); EOS % 0.4 % (1.5-5.0); GRAN # 10.31 (1.4-6.5); GRAN % 80.6 % (50.0-68.0); HEMOGLOBIN 10.5 g/dL (12.0-16.0); LYMPH # 0.7 (1.2-3.4); LYMPH % 5.3 % (22.0-35.0); MEAN CELL VOLUME 74.8 fl (80.0-105.0); MEAN CORPUSCULAR HEMOGLOBIN 24.1 pg (25.0-35.0); MEAN CORPUSCULAR HGB CONC 32.2 g/dl (31.0-37.0); MEAN PLATELET VOLUME 10.7 fl (7.0-11.0); MONO # 1.7 (0.1-0.6); MONO % 13.5 % (1.0-6.0); RBC 4.36 10^6/uL (3.5-6.1); RED CELL DISTRIBUTION WIDTH 19.9 % (11.5-14.5); WHITE BLOOD COUNT 12.8 10^3/ul (4.5-11.0)
[2018-07-19 08:32] LABS: ALB/GLOB RATIO 0.9 (1.1-1.8); ALBUMIN 2.8 g/dL (3.0-4.8); CALCIUM 8.2 mg/dL (8.4-10.5)
[2018-07-19] MEDS: Meropenem IV 1 gm in NS 50 ML IVPB SCH ×2 (09:15→21:25)
--- NOTE | 2018-07-19 09:24 | PN ---
Copied To: Laz Chavira MD Attending MD: Laz Chavira MD DATE: 07/19/2018 SUBJECTIVE: The patient is seen earlier today in 216, bed 1. No fevers and no chills. No chest pain. No abdominal pain, diarrhea. Uneventful night. PHYSICAL EXAMINATION: VITAL SIGNS: On exam, temperature is 98, blood pressure is 102/50, respiratory rate of 20, heart rate of 102. HEENT: Examination of HEENT is unremarkable. NECK: Supple. LUNGS: Have decreased breath sounds. HEART: Normal S1, S2. ABDOMEN: Soft, nontender. No organomegaly. No rebound. No guarding or masses. LABORATORY DATA: Laboratory examination reveals a white count of 12,800, hemoglobin of 10, platelets of 192. Chemistries reveals a BUN of 22, creatinine of 1.2, AST is 116, ALT of 69. Slight increase in liver function tests since yesterday. Urinalysis is noted to have 25-30 wbc's. The patient's blood cultures are no growth. Urine culture has gram-negative trish. Review of orders reveals the patient to be on meropenem and the patient also a HIDA scan pending. ASSESSMENT AND PLAN: An 82-year-old female, was seen earlier today in room 260, bed 1, who is allergic to penicillin with a history of diverticulosis, gastritis, shingles, anemia, asthma, hypertension. Admitted with abdominal pain, nausea and vomiting. #1 is severe sepsis with gram-negative trish in the urine with positive urinalysis and the patient is complaining of dysuria who is allergic to sulfa and penicillin with acute kidney injury and on meropenem day #2, pending identification of gram-negative trish in the urine. Thus far, the blood cultures are negative. We will check on a HIDA scan to rule out GI pathology, although this appears to be all genitourinary with gram-negative trish in the urine and symptomatic dysuria. Case discussed with Dr. Ricci yesterday. Laz Chavira MD
[2018-07-19] MEDS: Lactated Ringer's 1,000 ML IV SCH (12:38)
--- NOTE | 2018-07-19 14:36 | PN ---
Copied To: Jeffy Horne MD Attending MD: Jeffy Horne MD DATE: 07/19/2018 SUBJECTIVE: The patient has no complaints of any chest pain. No shortness of breath. No headaches. PHYSICAL EXAMINATION: VITAL SIGNS: Temperature is 98.7, pulse of 88, blood pressure is 150/69, respirations 20. GENERAL: The patient is lying in bed, flat, comfortable. HEENT: No oral lesion. Anicteric sclerae. Moist mucosa. NECK: No JVD, adenopathy, or thyromegaly. CARDIOVASCULAR: S1 and S2, regular. No murmurs, rubs, or gallops. LUNGS: Clear to auscultation bilaterally. No wheeze, rales, or rhonchi. ABDOMEN: Bowel sounds are positive, soft, nontender and nondistended. EXTREMITIES: No cyanosis, clubbing or edema. LABORATORY DATA: White count of 12.8, hemoglobin 10.5. Creatinine is 1.2. ASSESSMENT: 1. Urinary tract infection secondary to gram-negative trish. 2. Penicillin allergy. 3. Diverticulosis. 4. Gastritis. PLAN: The patient is currently on lactated Ringer's. I will decrease the . The patient is on morphine for pain. She is going to continue with Zofran. Is on meropenem for antibiotics. She is on a liquid diet. She will have a HIDA scan that has been ordered. Jeffy Horne MD
[2018-07-20] MEDS: Lactated Ringer's 1,000 ML IV SCH ×3 (02:30→21:47)
[2018-07-20] MEDS: Pantoprazole 40mg/100mL NS 40 MG/100 ML BAG IVPB SCH (05:33)
[2018-07-20 07:04] LABS: BASO # 0.02 K/mm3 (0.0-2.0); BASO % 0.2 % (0.0-3.0); EOS # 0.1 (0.0-0.7); EOS % 0.9 % (1.5-5.0); GRAN # 6.35 (1.4-6.5); GRAN % 73.5 % (50.0-68.0); HEMOGLOBIN 9.3 g/dL (12.0-16.0); LYMPH # 0.8 (1.2-3.4); LYMPH % 9.6 % (22.0-35.0); MEAN CELL VOLUME 75.4 fl (80.0-105.0); MEAN CORPUSCULAR HEMOGLOBIN 23.6 pg (25.0-35.0); MEAN CORPUSCULAR HGB CONC 31.3 g/dl (31.0-37.0); MEAN PLATELET VOLUME 9.5 fl (7.0-11.0); MONO # 1.4 (0.1-0.6); MONO % 15.8 % (1.0-6.0); RBC 3.94 10^6/uL (3.5-6.1); RED CELL DISTRIBUTION WIDTH 19.7 % (11.5-14.5); WHITE BLOOD COUNT 8.7 10^3/ul (4.5-11.0)
--- NOTE | 2018-07-20 07:05 | CP.PCM.PN ---
Subjective - Date & Time of Evaluation Date of Evaluation: 07/20/18 Time of Evaluation: 06:45 - Subjective Subjective: Surgery Progress Note for Dr. Zavala Pt seen and examined at bedside. Slept well overnight, pain controlled, no acute events reported. Pt NPO today for HIDA scan. Pt denies any acute complaints this am. Denies chest pain, sob, n/v/d/c, urinary complaints or other symptoms. Objective - Vital Signs/Intake and Output Vital Signs (last 24 hours): Temp Pulse Resp BP Pulse Ox 99 F 84 20 121/61 92 L 07/20/18 06:00 07/20/18 06:00 07/20/18 06:00 07/20/18 06:00 07/20/18 06:00 Intake and Output: 07/20/18 07/20/18 06:59 18:59 Intake Total 975 Output Total 0 Balance 975 - Medications Medications: Current Medications Pantoprazole Sodium (Protonix 40mg Ivpb) 40 mg in 100 mls @ 200 mls/hr IVPB 0600 [facility] Last Admin: 07/20/18 05:33 Dose: 200 mls/hr Meropenem (Merrem Iv 1 Gm Premix) 50 mls @ 100 mls/hr IVPB Q12 ROSALINDA PRN Reason: Protocol Stop: 07/27/18 10:01 Last Admin: 07/19/18 21:25 Dose: 100 mls/hr Lactated Ringer's (Lactated Ringer's) 1,000 mls @ 75 mls/hr IV .[id number] [facility] Last Admin: 07/20/18 05:34 Dose: 75 mls/hr Morphine Sulfate (Morphine) 2 mg IVP Q4H PRN PRN Reason: Pain, moderate (4-7) Ondansetron HCl (Zofran Inj) 4 mg IVP Q4H PRN PRN Reason: Nausea/Vomiting - Labs Labs: 07/19/18 06:00 07/19/18 06:00 - Constitutional Appears: Non-toxic, No Acute Distress - Head Exam Head Exam: ATRAUMATIC, NORMAL INSPECTION - Eye Exam Eye Exam: EOMI, Normal appearance, PERRL - ENT Exam ENT Exam: Mucous Membranes Moist - Respiratory Exam Respiratory Exam: Clear to Ausculation Bilateral, NORMAL BREATHING PATTERN - Cardiovascular Exam Cardiovascular Exam: REGULAR RHYTHM, +S1, +S2 - GI/Abdominal Exam GI & Abdominal Exam: Soft, Normal Bowel Sounds Additional comments: Tenderness to palpation in epigastric region - Extremities Exam Extremities Exam: Full ROM, Normal Capillary Refill, Normal Inspection - Back Exam Back Exam: NORMAL INSPECTION Additional comments: no CVA tenderness b/l - Neurological Exam Neurological Exam: Alert, Awake, CN II-XII Intact, Oriented x3 - Skin Skin Exam: Dry, Intact, Normal Color, Warm Assessment and Plan - Assessment and Plan (Free Text) Assessment: 82 F who presents with abdominal pain, possible acute cholecystitis, sepsis, and UTI. Plan: -Pt NPO for HIDA scan today, f/u results -C/w IV fluids, IV antibiotics (Meropenem) -Analgescis/Anti-emetics PRN -Strict I's & O's -Cont to trend WBC (decreasing) -Pt to OR this week for lap maru. -F/u cardio recs re. risk stratification for procedure -Further recommendations as per Dr. Lucas Carballo, DO PGY-1
[2018-07-20 07:34] LABS: ALB/GLOB RATIO 0.9 (1.1-1.8); ALBUMIN 2.7 g/dL (3.0-4.8); ALT/SGPT 68 U/L (7-56); AST/SGOT 78 U/L (14-36); BLOOD UREA NITROGEN 20 mg/dL (7-21); GFR NON-AFRICAN AMERICAN 53
--- NOTE | 2018-07-20 10:26 | CP.PCM.PCO ---
Physician Communication Note - Physician Communication Note Physician Communication Note: Plan OR Tomorrow-1:30
--- NOTE | 2018-07-20 10:28 | CON ---
Copied To: Jamarcus Hercules MD Attending MD: Jamarcus Hercules MD DATE: 07/20/2018 INDICATIONS: Preoperative evaluation, possible gallbladder surgery, history of mitral regurgitation. This is an 82-year-old woman known to me admitted on the 07/17/2018 with weakness, dizziness, abdominal pain and hypotension. She underwent a code sepsis in the Emergency Room. Subsequently, urine culture is growing a gram-negative trish. She has been treated with fluids, antibiotics and she feels much better today. There is no chest pain, shortness of breath, orthopnea, PND, syncope, presyncope, lightheadedness, dizziness, vertigo, palpitation, edema, claudication, rigor, sweats, cough, sputum production, hemoptysis, constipation, melena. Workup also has disclosed gallstones and possible cholecystitis. PAST MEDICAL HISTORY: Notable for mitral regurgitation, which was moderate on an echocardiogram last year. She has asthma, GERD, diverticulosis, recent possible shingles, hysterectomy, appendectomy and right total knee replacement. There is no history of rheumatic fever, myocardial infarction, angina, congestive heart failure, arrhythmia, stroke, TIA, diabetes or gout. MEDICATIONS AT THE TIME OF ADMISSION: Include Breo-Ellipta, Nexium, Zantac, vitamin D and calcium supplementation. CURRENT MEDICATIONS: Include lactated Ringer's, meropenem, morphine p.r.n., pantoprazole, Zofran. ALLERGIES: SHE HAS ALLERGIES TO SULFONAMIDES AND PENICILLINS. SOCIAL HISTORY: She lives at home in [place]. She is a remote smoker. She drinks alcohol socially. She is ambulatory. FAMILY HISTORY: Noncontributory. REVIEW OF SYSTEMS: The 10-point review of systems otherwise unremarkable except as noted above. PHYSICAL EXAMINATION: GENERAL: She is a well-developed woman sitting on her bed on 2R in no acute distress. VITAL SIGNS: She is in sinus rhythm, 84 beats per minute, 99.8 temperature, 121/61 blood pressure, respirations 20, O2 sat is 91-97% on room air. HEENT: Exam reveals no neck vein distention, thyromegaly, carotid bruits. Mucous membranes moist. Conjunctivae pink. NECK: Supple. LUNGS: Lung rodrigues clear throughout. HEART: Revealed normal first and second heart sound. There is a soft systolic murmur heard along the left sternal border and at the apex. ABDOMEN: Soft. Bowel sounds are present. No mass, organomegaly, tenderness, rebound or guarding. No CVA tenderness. No palpable abdominal aortic aneurysm. EXTREMITIES: Exam revealed no cyanosis, clubbing or edema. NEUROLOGIC: Awake, alert and oriented. PSYCHIATRIC: Normal as to mood and affect. SKIN: Warm and dry. No rash or cellulitis. LABORATORY AND IMAGING: Chest x-ray reveals poor inspiration with elevated right hemidiaphragm. Abdominal and pelvis CT scan reveals a distended gallbladder containing intraluminal calculi and layering gravel, etc.; also diverticulosis and large hiatal hernia, see full report. Gallbladder ultrasound reveals gallstones, small amount of pericholecystic fluid, rule out cholecystitis. Negative for Womack's sign. EKG demonstrated regular sinus rhythm, mild nonspecific S-T wave changes. Small Q-wave in aVF. No acute change compared to a prior EKG. White count initially 25,000, today 8700;, hemoglobin 9.3; hematocrit 29.7. Platelet count normal. Blood gases are noted. Electrolytes: BUN and creatinine unremarkable. Blood sugar is unremarkable. Magnesium 1.9. LFTs mildly elevated. TSH is normal. Initially, a troponin was normal. BNP 2460. TSH normal. The urinalysis is abnormal as noted. Blood cultures x2, no growth at 48 hours. Urine culture positive for gram-negative rods. IMPRESSION: Claudia Mathew is an 82-year-old woman who came in with a septic picture responding to treatment, found to have gram-negative rods in urine and evidence of gallstones and possible cholecystitis. She has known gallstones in the past. She has mitral regurgitation on an echocardiogram last year. She has not had cardiac symptoms, such as, chest pain or shortness of breath, palpitations, etc. At this point, she is getting antibiotics. She has a surgical consultation, ID consultation. She is getting IV fluids. She has improved. A HIDA scan is pending. If surgery is contemplated, she should be considered a mildly increased cardiac risk. There is no absolute contraindication if surgery is indicated. We should monitor Is and Os, check stool for occult blood. I will follow along with you. I will make additional recommendations based on her clinical course. Jamarcus Hercules MD [facility] # [id number] [place]
[2018-07-20] MEDS: Meropenem IV 1 gm in NS 50 ML IVPB SCH ×2 (10:35→21:47)
--- NOTE | 2018-07-20 12:38 | CP.PCM.PN ---
Subjective - Date & Time of Evaluation Date of Evaluation: 07/20/18 Time of Evaluation: 09:25 - Subjective Subjective: Patient is comfortable in bed, no fevers, not in distress. Objective - Vital Signs/Intake and Output Vital Signs (last 24 hours): Temp Pulse Resp BP Pulse Ox 99 F 84 20 121/61 92 L 07/20/18 06:00 07/20/18 06:00 07/20/18 06:00 07/20/18 06:00 07/20/18 06:00 Intake and Output: 07/20/18 07/20/18 06:59 18:59 Intake Total 975 Output Total 0 Balance 975 - Medications Medications: Current Medications Pantoprazole Sodium (Protonix 40mg Ivpb) 40 mg in 100 mls @ 200 mls/hr IVPB 0600 ROSALINDA Last Admin: 07/20/18 05:33 Dose: 200 mls/hr Meropenem (Merrem Iv 1 Gm Premix) 50 mls @ 100 mls/hr IVPB Q12 ROSALINDA PRN Reason: Protocol Stop: 07/27/18 10:01 Last Admin: 07/19/18 21:25 Dose: 100 mls/hr Lactated Ringer's (Lactated Ringer's) 1,000 mls @ 75 mls/hr IV .[id number] [facility] Last Admin: 07/20/18 05:34 Dose: 75 mls/hr Morphine Sulfate (Morphine) 2 mg IVP Q4H PRN PRN Reason: Pain, moderate (4-7) Ondansetron HCl (Zofran Inj) 4 mg IVP Q4H PRN PRN Reason: Nausea/Vomiting - Labs Labs: 07/20/18 06:50 07/20/18 06:50 - Constitutional Appears: Chronically Ill - Head Exam Head Exam: NORMAL INSPECTION - Respiratory Exam Respiratory Exam: Decreased Breath Sounds - Cardiovascular Exam Cardiovascular Exam: +S1, +S2 - GI/Abdominal Exam GI & Abdominal Exam: Soft. absent: Tenderness Assessment and Plan - Assessment and Plan (Free Text) Plan: Assessment Severe sepsis due to UTI with gram negative bacilli, R/O acute cholecystitis diverticulosis history of shingles gastritis chronic anemia asthma HTN Plan Continue Merrem day 3 pending identification and sensitivities of the gram negative bacilli in the urine follow up HIDA scan results; reviewed CT A/P and ultrasound of gallbladder which are equivocal will monitor clinically
--- NOTE | 2018-07-20 12:50 | PN ---
Copied To: Shawna Ricci MD Attending MD: Shawna Ricci MD DATE: 07/20/2018 SUBJECTIVE: The patient is 82 years old, seen and examined, ambulating. She states she feels a lot better. She has cravings to have some crackers. No nausea or vomiting. No diarrhea. PHYSICAL EXAMINATION: VITAL SIGNS: She is afebrile, pulse 84, respirations 20, blood pressure 121/61. LUNGS: Bilateral fair airflow. No rhonchi or crackle. HEART: S1, S2 audible. ABDOMEN: Soft, she has right upper quadrant discomfort and she has left flank discomfort. NEUROLOGICAL: She is awake, alert, oriented, communicative, ambulatory. LABORATORY EXAM: WBC is 8.7, hemoglobin 9.3, hematocrit 29.7, platelet of 171. Chemistry: Sodium 136, potassium 4.4, chloride 103, CO2 26, BUN 20, creatinine 1, blood sugar of 92. AST 78, ALT 68. Blood cultures are negative. Urine shows gram-negative rods. HIDA scan is pending. ASSESSMENT: 1. Pyelonephritis with Escherichia coli urinary tract infection. 2. Cholelithiasis, rule out cholecystitis. 3. Abnormal liver function tests. 4. Leukocytosis, improving. PLAN: Currently, the patient is on clear liquids. She is on meropenem, analgesic as needed. She is on Protonix. We will follow up her CBC and CMP in a.m. Shawna Ricci MD
--- NOTE | 2018-07-20 14:54 | NM ---
Date of service: 07/20/2018 PROCEDURE: Nuclear Medicine Hepatobiliary Scan HISTORY: r/o cholecystectomy COMPARISON: None available. TECHNIQUE: 5.9 mCi of technetium 99m Mebrofenin was administered intravenously. Planar images of the abdomen were obtained at 5 min intervals to 60 mins. Delayed images were also obtained. FINDINGS: LIVER: Timely and homogenous uptake. COMMON BILE DUCT: identified at 15 mins. GALLBLADDER: Nonvisualized even on 4 hour delay SMALL BOWEL: Identified at 30 mins. IMPRESSION: Nonvisualization of the gallbladder consistent with acute cholecystitis
[2018-07-21] MEDS: Pantoprazole 40mg/100mL NS 40 MG/100 ML BAG IVPB SCH (05:14)
[2018-07-21 06:35] LABS: INR 1.27; PARTIAL THROMBOPLASTIN TIME 28.2 Seconds (25.1-36.5); PROTHROMBIN TIME 14.7 SECONDS (9.4-12.5)
[2018-07-21 06:36] LABS: BASO # 0.02 K/mm3 (0.0-2.0); BASO % 0.3 % (0.0-3.0); EOS # 0.1 (0.0-0.7); EOS % 1.5 % (1.5-5.0); GRAN # 4.51 (1.4-6.5); GRAN % 66.3 % (50.0-68.0); HEMOGLOBIN 9.3 g/dL (12.0-16.0); LYMPH # 1.1 (1.2-3.4); LYMPH % 16.8 % (22.0-35.0); MEAN CORPUSCULAR HEMOGLOBIN 23.8 pg (25.0-35.0); MEAN CORPUSCULAR HGB CONC 31.3 g/dl (31.0-37.0); MEAN PLATELET VOLUME 10.1 fl (7.0-11.0); MONO % 15.1 % (1.0-6.0); RBC 3.91 10^6/uL (3.5-6.1); RED CELL DISTRIBUTION WIDTH 19.8 % (11.5-14.5); WHITE BLOOD COUNT 6.8 10^3/ul (4.5-11.0)
[2018-07-21 06:45] LABS: ALBUMIN 2.6 g/dL (3.0-4.8); ALT/SGPT 58 U/L (7-56); AST/SGOT 43 U/L (14-36); BLOOD UREA NITROGEN 17 mg/dL (7-21); CALCIUM 8.2 mg/dL (8.4-10.5); GFR NON-AFRICAN AMERICAN 60
--- NOTE | 2018-07-21 08:38 | CP.PCM.PN ---
Subjective - Date & Time of Evaluation Date of Evaluation: 07/21/18 Time of Evaluation: 07:00 - Subjective Subjective: Stable on 2R. She feels better. No CP, SOB. V/S noted. RSR PE: Lungs: clear Cor.: S1S2 Abd.: soft Ext.: no edema Neuro.: alert I/O = 2630/1153 BC X2 NG at 3 days Urine C+S: + GNR HIDA: non-viz c/w acute cholecystitis Objective - Vital Signs/Intake and Output Vital Signs (last 24 hours): Temp Pulse Resp BP Pulse Ox 98.8 F 80 20 139/75 98 07/21/18 06:00 07/21/18 06:00 07/21/18 06:00 07/21/18 06:00 07/21/18 06:00 Intake and Output: 07/21/18 07/21/18 06:59 18:59 Intake Total 900 Output Total 3 Balance 897 - Medications Medications: Current Medications Pantoprazole Sodium (Protonix 40mg Ivpb) 40 mg in 100 mls @ 200 mls/hr IVPB 0600 [facility] Last Admin: 07/21/18 05:14 Dose: 200 mls/hr Meropenem (Merrem Iv 1 Gm Premix) 50 mls @ 100 mls/hr IVPB Q12 ROSALINDA PRN Reason: Protocol Stop: 07/27/18 10:01 Last Admin: 07/20/18 21:47 Dose: 100 mls/hr Lactated Ringer's (Lactated Ringer's) 1,000 mls @ 75 mls/hr IV .[id number] [facility] Last Admin: 07/20/18 21:47 Dose: 75 mls/hr Morphine Sulfate (Morphine) 2 mg IVP Q4H PRN PRN Reason: Pain, moderate (4-7) Ondansetron HCl (Zofran Inj) 4 mg IVP Q4H PRN PRN Reason: Nausea/Vomiting - Labs Labs: 07/21/18 05:50 07/21/18 05:50 PT 14.7 SECONDS (9.4-12.5) H 07/21/18 05:50 INR 1.27 07/21/18 05:50 APTT 28.2 Seconds (25.1-36.5) 07/21/18 05:50 Assessment and Plan - Assessment and Plan (Free Text) Assessment: Abdominal Pain, Nausea, Vomiting, hypotension initially Sepsis UTI Gall stones/Acute cholecystitis Moderate MR Asthma Diverticulosis GERD Shingles S/P hysterectomy, AP Right TKR Plan: Mildly increased cardiac risk for gall bladder surgery. AB As per ID, Dr. Zavala, ID, Drs. Ricci and Coleen
[2018-07-21] MEDS: Meropenem IV 1 gm in NS 50 ML IVPB SCH ×2 (11:38→21:34)
[2018-07-21] MEDS: Lactated Ringer's 1,000 ML IV SCH (11:39)
--- NOTE | 2018-07-21 12:02 | CP.PCM.PN ---
Subjective - Date & Time of Evaluation Date of Evaluation: 07/21/18 Time of Evaluation: 09:50 - Subjective Subjective: Comfortable in bed, less abdominal pain, no fevers, for OR today. Objective - Vital Signs/Intake and Output Vital Signs (last 24 hours): Temp Pulse Resp BP Pulse Ox 98.8 F 80 20 139/75 98 07/21/18 06:00 07/21/18 06:00 07/21/18 06:00 07/21/18 06:00 07/21/18 06:00 Intake and Output: 07/21/18 07/21/18 06:59 18:59 Intake Total 900 Output Total 3 Balance 897 - Medications Medications: Current Medications Pantoprazole Sodium (Protonix 40mg Ivpb) 40 mg in 100 mls @ 200 mls/hr IVPB 0600 [facility] Last Admin: 07/21/18 05:14 Dose: 200 mls/hr Meropenem (Merrem Iv 1 Gm Premix) 50 mls @ 100 mls/hr IVPB Q12 ROSALINDA PRN Reason: Protocol Stop: 07/27/18 10:01 Last Admin: 07/20/18 21:47 Dose: 100 mls/hr Lactated Ringer's (Lactated Ringer's) 1,000 mls @ 75 mls/hr IV .[id number] [facility] Last Admin: 07/20/18 21:47 Dose: 75 mls/hr Morphine Sulfate (Morphine) 2 mg IVP Q4H PRN PRN Reason: Pain, moderate (4-7) Ondansetron HCl (Zofran Inj) 4 mg IVP Q4H PRN PRN Reason: Nausea/Vomiting - Labs Labs: 07/21/18 05:50 07/21/18 05:50 PT 14.7 SECONDS (9.4-12.5) H 07/21/18 05:50 INR 1.27 07/21/18 05:50 APTT 28.2 Seconds (25.1-36.5) 07/21/18 05:50 - Constitutional Appears: Non-toxic, Chronically Ill - Head Exam Head Exam: NORMAL INSPECTION - Respiratory Exam Respiratory Exam: Decreased Breath Sounds - Cardiovascular Exam Cardiovascular Exam: +S1, +S2 - GI/Abdominal Exam GI & Abdominal Exam: Soft. absent: Tenderness Assessment and Plan - Assessment and Plan (Free Text) Plan: Assessment Severe sepsis due to UTI with gram negative bacilli, as well as acute cholecystitis diverticulosis history of shingles gastritis chronic anemia asthma HTN Plan Continue Merrem day 4 pending identification and sensitivities of the gram negative bacilli in the urine HIDA scan shows acute cholecystitis; reviewed CT A/P and ultrasound of gallbladder - discussed with Dr. Zavala - for OR today will continue to monitor clinically
--- NOTE | 2018-07-21 12:41 | PN ---
Copied To: Shawna Ricci MD Attending MD: Shawna Ricci MD DATE: 07/21/2018 SUBJECTIVE: The patient is 82 years old, seen and examined, sitting in chair, seems to be comfortable. She states she feels lot better. Still has some discomfort in the right upper quadrant going towards her back, otherwise, she is feeling lot better. Feels hungry, want to eat. PHYSICAL EXAMINATION: VITAL SIGNS: She is afebrile, pulse 89, respirations 20, blood pressure 124/69. LUNGS: Bilateral fair airflow. No rhonchi or crackle. HEART: S1, S2 audible. ABDOMEN: Soft, slight right upper quadrant discomfort. NEUROLOGICAL: She is awake, alert, oriented, communicative, ambulatory. LABORATORY EXAM: WBC is 6.8, hemoglobin 9.3, hematocrit 29.7, platelet 201. Chemistry: Sodium 140, potassium 4.2, chloride 104, CO2 of 25, BUN 17, creatinine 0.9, blood sugar of 82. AST 43, ALT 58. Urine is growing gram-negative rods. ASSESSMENT AND PLAN: 1. Sepsis resolving with leukocytosis that has resolved. 2. Non-visualized gallbladder consistent with acute cholecystitis. 3. Pyelonephritis. 4. Hypertension. 5. Electrolyte imbalance. PLAN: The patient is currently on IV antibiotics. She is on IV fluids. She is on meropenem. Continue her on Protonix. She is scheduled for lap maru today and we will follow up electrolytes and CBC in a.m. Shawna Ricci MD
[2018-07-21] MEDS ORDERED: Bupivacaine 0.5% Inj(30mL) ONE (13:14)
[2018-07-21] MEDS ORDERED: Iohexol 240 (50 ml) ONE (13:14)
[2018-07-21] MEDS ORDERED: Propofol 10 mg/ml Inj (20 ML) ONE (14:05)
[2018-07-21] MEDS ORDERED: Lidocaine 1% Inj (20ml) ONE (14:06)
[2018-07-21] MEDS ORDERED: Rocuronium 10 mg/ml (5 ml) ONE ×2 (14:06→15:51)
[2018-07-21] MEDS ORDERED: Neostigmine Methylsulfate 3mg/3ml Syringe IV ONE (15:10)
[2018-07-21] MEDS ORDERED: Absorbable Gelatin Sponge Size 100 ONE (16:55)
[2018-07-21] MEDS ORDERED: Collagen Hemostat Powder ONE (16:58)
[2018-07-21] MEDS ORDERED: Bupivacaine Liposomal Inj 20 ml ONE (17:19)
[2018-07-21] MEDS ORDERED: HYDROmorphone 0.5 mg/0.5 ml ISec IVP PRN (17:51)
--- NOTE | 2018-07-21 17:51 | PCM.SURG1 ---
Surgeon's Initial Post Op Note - Surgeon's Notes Surgeon: Dr. Zavala Hole Digger: Dr. Blue PGY-3 Type of Anesthesia: General Endo Anesthesia Administered By: Dr. Yee Pre-Operative Diagnosis: Acute on Chronic Cholecystitis Operative Findings: See operative report Post-Operative Diagnosis: Same Operation Performed: Laparoscopic Cholecystectomy with IOC Specimen/Specimens Removed: Gallbladder Estimated Blood Loss: EBL {In ML}: 250 Blood Products Given: N/A Drains Used: Hermilo Post-Op Condition: Good Date of Surgery/Procedure: 07/21/18 Time of Surgery/Procedure: 17:50
[2018-07-21] MEDS ORDERED: Levalbuterol 1.25 MG/3 ML Inhal Soln UD IH PRN (17:53)
[2018-07-22] MEDS: HYDROmorphone 0.5 mg/0.5 ml ISec IVP PRN (00:31)
[2018-07-22] MEDS: Oxycodone/Acetaminophen 5/325 mg Tab PO PRN ×4 (02:34→18:31)
[2018-07-22] MEDS: Pantoprazole 40mg/100mL NS 40 MG/100 ML BAG IVPB SCH (05:47)
[2018-07-22 06:24] LABS: BASO # 0.02 K/mm3 (0.0-2.0); BASO % 0.2 % (0.0-3.0); EOS # 0.1 (0.0-0.7); EOS % 0.8 % (1.5-5.0); GRAN # 7.22 (1.4-6.5); GRAN % 77.4 % (50.0-68.0); HEMOGLOBIN 10.1 g/dL (12.0-16.0); LYMPH # 0.9 (1.2-3.4); LYMPH % 9.2 % (22.0-35.0); MEAN CELL VOLUME 77.8 fl (80.0-105.0); MEAN CORPUSCULAR HEMOGLOBIN 24.3 pg (25.0-35.0); MEAN CORPUSCULAR HGB CONC 31.3 g/dl (31.0-37.0); MONO # 1.2 (0.1-0.6); MONO % 12.4 % (1.0-6.0); RBC 4.15 10^6/uL (3.5-6.1); RED CELL DISTRIBUTION WIDTH 19.9 % (11.5-14.5); WHITE BLOOD COUNT 9.3 10^3/ul (4.5-11.0)
[2018-07-22 06:48] LABS: ALB/GLOB RATIO 0.9 (1.1-1.8); ALBUMIN 2.8 g/dL (3.0-4.8); ALT/SGPT 75 U/L (7-56); AST/SGOT 91 U/L (14-36); BLOOD UREA NITROGEN 16 mg/dL (7-21); CALCIUM 7.8 mg/dL (8.4-10.5); GFR NON-AFRICAN AMERICAN > 60
--- NOTE | 2018-07-22 08:00 | CP.PCM.PN ---
Subjective - Date & Time of Evaluation Date of Evaluation: 07/22/18 Time of Evaluation: 07:00 - Subjective Subjective: Stable on 2R s/p lap maru with IOC. + op site pain. No CP, SOB. V/S noted. RSR PE: Lungs: clear Cor.: S1S2 Abd.: tender Ext.: no edema Neuro.: alert I/O = 1410/625 BC X2 NG at 4 days Urine C+S: + GNR HIDA: non-viz c/w acute cholecystitis Objective - Vital Signs/Intake and Output Vital Signs (last 24 hours): Temp Pulse Resp BP Pulse Ox 97.0 F L 77 20 109/65 95 07/22/18 06:00 07/22/18 06:00 07/22/18 06:00 07/22/18 06:00 07/22/18 06:00 Intake and Output: 07/22/18 07/22/18 06:59 18:59 Intake Total 1020 Output Total 625 Balance 395 - Medications Medications: Current Medications Hydromorphone HCl (Dilaudid) 0.5 mg IVP Q6H PRN PRN Reason: Pain, severe (8-10) Last Admin: 07/22/18 00:31 Dose: 0.5 mg Pantoprazole Sodium (Protonix 40mg Ivpb) 40 mg in 100 mls @ 200 mls/hr IVPB 0600 ROSALINDA Last Admin: 07/22/18 05:47 Dose: 200 mls/hr Lactated Ringer's (Lactated Ringer's) 1,000 mls @ 75 mls/hr IV .[id number] [facility] Last Admin: 07/21/18 11:39 Dose: 75 mls/hr Meropenem (Merrem Iv 1 Gm Premix) 50 mls @ 100 mls/hr IVPB Q8 ROSALINDA PRN Reason: Protocol Stop: 07/31/18 14:01 Levalbuterol HCl (Xopenex) 1.25 mg IH [id number] PRN PRN Reason: Shortness of Breath Ondansetron HCl (Zofran Inj) 4 mg IVP Q4H PRN PRN Reason: Nausea/Vomiting Last Admin: 07/21/18 19:03 Dose: 4 mg Ondansetron HCl (Zofran Inj) 4 mg IVP ONCE PRN PRN Reason: Nausea/Vomiting Oxycodone/Acetaminophen (Percocet 5/325 Mg Tab) 1 tab PO Q4H PRN PRN Reason: Pain, moderate (4-7) Stop: 07/24/18 17:53 Last Admin: 07/22/18 06:49 Dose: 1 tab - Labs Labs: 07/22/18 05:40 07/22/18 05:40 PT 14.7 SECONDS (9.4-12.5) H 07/21/18 05:50 INR 1.27 07/21/18 05:50 APTT 28.2 Seconds (25.1-36.5) 07/21/18 05:50 Assessment and Plan - Assessment and Plan (Free Text) Assessment: Abdominal Pain, Nausea, Vomiting, hypotension initially Sepsis UTI Gall stones/Acute cholecystitis/S/P lap maru with IOC 07/21/18 Moderate MR Asthma Diverticulosis GERD Shingles S/P hysterectomy, AP Right TKR Plan: Post op care as per Dr. Zavala/team AB As per ID, Drs. Ricci and Coleen
--- NOTE | 2018-07-22 08:28 | RAD ---
Date of service: 07/21/2018 PROCEDURE: Intraoperative Fluoroscopy. HISTORY: ? CBD OBST FINDINGS: Fluoroscopic assistance was provided for intraoperative cholangiogram. There is moderate dilatation of the common bile duct and centra intrahepatic biliary tree with the balloon inflated positioned at the main left hepatic duct no additional intraluminal defects are identified. Gallbladder is opacified a large calculus in the lumen. Please refer to the operative report from [facility]. 18.3 seconds of fluoro time was utilized with a cumulative radiation dose of 3.27 mGy.
[2018-07-22] MEDS ORDERED: Lactated Ringer's 1,000 ML IV SCH ×2 (10:38→10:46)
--- NOTE | 2018-07-22 11:45 | CP.PCM.PN ---
Subjective - Date & Time of Evaluation Date of Evaluation: 07/22/18 Time of Evaluation: 10:25 - Subjective Subjective: Patient had laparoscopic cholecystectomy yesterday, doing well, no nausea, no diarrhea, no fevers, still with abdominal pain but better. Objective - Vital Signs/Intake and Output Vital Signs (last 24 hours): Temp Pulse Resp BP Pulse Ox 97.0 F L 77 20 109/65 95 07/22/18 06:00 07/22/18 06:00 07/22/18 06:00 07/22/18 06:00 07/22/18 06:00 Intake and Output: 07/21/18 07/22/18 18:59 06:59 Intake Total 390 1020 Output Total 625 Balance 390 395 - Medications Medications: Current Medications Hydromorphone HCl (Dilaudid) 0.5 mg IVP Q6H PRN PRN Reason: Pain, severe (8-10) Last Admin: 07/22/18 00:31 Dose: 0.5 mg Pantoprazole Sodium (Protonix 40mg Ivpb) 40 mg in 100 mls @ 200 mls/hr IVPB 0600 ROSALINDA Last Admin: 07/22/18 05:47 Dose: 200 mls/hr Lactated Ringer's (Lactated Ringer's) 1,000 mls @ 75 mls/hr IV .[id number] [facility] Last Admin: 07/21/18 11:39 Dose: 75 mls/hr Meropenem (Merrem Iv 1 Gm Premix) 50 mls @ 100 mls/hr IVPB Q8 ROSALINDA PRN Reason: Protocol Stop: 07/31/18 14:01 Levalbuterol HCl (Xopenex) 1.25 mg IH [id number] PRN PRN Reason: Shortness of Breath Ondansetron HCl (Zofran Inj) 4 mg IVP Q4H PRN PRN Reason: Nausea/Vomiting Last Admin: 07/21/18 19:03 Dose: 4 mg Ondansetron HCl (Zofran Inj) 4 mg IVP ONCE PRN PRN Reason: Nausea/Vomiting Oxycodone/Acetaminophen (Percocet 5/325 Mg Tab) 1 tab PO Q4H PRN PRN Reason: Pain, moderate (4-7) Stop: 07/24/18 17:53 Last Admin: 07/22/18 02:34 Dose: 1 tab - Labs Labs: 07/22/18 05:40 07/22/18 05:40 PT 14.7 SECONDS (9.4-12.5) H 07/21/18 05:50 INR 1.27 07/21/18 05:50 APTT 28.2 Seconds (25.1-36.5) 07/21/18 05:50 - Constitutional Appears: Non-toxic, No Acute Distress, Chronically Ill - Head Exam Head Exam: NORMAL INSPECTION - Neck Exam Neck Exam: absent: Meningismus - Respiratory Exam Respiratory Exam: Decreased Breath Sounds - Cardiovascular Exam Cardiovascular Exam: +S1, +S2 - GI/Abdominal Exam GI & Abdominal Exam: Soft. absent: Tenderness Additional comments: dry dressings in place Assessment and Plan - Assessment and Plan (Free Text) Plan: Assessment Severe sepsis due to acute cholecystitis, S/P cholecystectomy, possible UTI with gram negative bacilli as well POD #1 diverticulosis history of shingles gastritis chronic anemia asthma HTN Plan Continue Merrem day 5 - will observe clinically and if patient continues to be afebrile, no leukocytosis, may consider discontinuing antibiotics in the next 48 -72 hours will continue to monitor clinically
--- NOTE | 2018-07-22 12:05 | CP.PCM.PN ---
Subjective - Date & Time of Evaluation Date of Evaluation: 07/22/18 Time of Evaluation: 09:00 - Subjective Subjective: General Surgery Note for Dr. Zavala Patient seen and examined at beside. No acute events overnihgt. Patient is s/p laparoscopic cholecystectomy with IOC POD#1. Patient states she is experiencing pain but is controlled. She is tolerating clear liquids. Denies fever/chills and nausea/vomiting. Patient had 25 cc of serosanguinous output from drain since OR. She has had appropriate urine output thus far. She denies any other complaints. Objective - Vital Signs/Intake and Output Vital Signs (last 24 hours): Temp Pulse Resp BP Pulse Ox 98.1 F 87 20 126/68 95 07/22/18 11:38 07/22/18 11:38 07/22/18 11:38 07/22/18 11:38 07/22/18 06:00 Intake and Output: 07/22/18 07/22/18 06:59 18:59 Intake Total 1020 Output Total 625 Balance 395 - Medications Medications: Current Medications Hydromorphone HCl (Dilaudid) 0.5 mg IVP Q6H PRN PRN Reason: Pain, severe (8-10) Last Admin: 07/22/18 00:31 Dose: 0.5 mg Meropenem (Merrem Iv 1 Gm Premix) 50 mls @ 100 mls/hr IVPB Q8 ROSALINDA PRN Reason: Protocol Stop: 07/31/18 14:01 Levalbuterol HCl (Xopenex) 1.25 mg IH [id number] PRN PRN Reason: Shortness of Breath Ondansetron HCl (Zofran Inj) 4 mg IVP Q4H PRN PRN Reason: Nausea/Vomiting Last Admin: 07/21/18 19:03 Dose: 4 mg Oxycodone/Acetaminophen (Percocet 5/325 Mg Tab) 1 tab PO Q4H PRN PRN Reason: Pain, moderate (4-7) Stop: 07/24/18 17:53 Last Admin: 07/22/18 06:49 Dose: 1 tab - Labs Labs: 07/22/18 05:40 07/22/18 05:40 PT 14.7 SECONDS (9.4-12.5) H 07/21/18 05:50 INR 1.27 07/21/18 05:50 APTT 28.2 Seconds (25.1-36.5) 07/21/18 05:50 - Constitutional Appears: No Acute Distress - Head Exam Head Exam: ATRAUMATIC, NORMOCEPHALIC - Eye Exam Eye Exam: EOMI, Normal appearance Pupil Exam: PERRL - ENT Exam ENT Exam: Mucous Membranes Moist - Respiratory Exam Respiratory Exam: NORMAL BREATHING PATTERN - Cardiovascular Exam Cardiovascular Exam: REGULAR RHYTHM - GI/Abdominal Exam GI & Abdominal Exam: Soft, Tenderness (RUQ), Normal Bowel Sounds. absent: Distended, Firm, Guarding, Rebound Additional comments: Elizabeth drain in place surgical site dressings clean dry and intact - Extremities Exam Extremities Exam: Normal Capillary Refill - Back Exam Back Exam: absent: CVA tenderness (L), CVA tenderness (R) - Neurological Exam Neurological Exam: Alert, Awake, CN II-XII Intact, Normal Gait, Oriented x3 - Psychiatric Exam Psychiatric exam: Normal Affect, Normal Mood - Skin Skin Exam: Dry, Intact, Normal Color, Warm Assessment and Plan - Assessment and Plan (Free Text) Assessment: 82 F s/p laparoscopic cholecystectomy with IOC POD#1 for acute cholecystitis Plan: -CLD, ADAT -Continue IV fluids low rate -Continue IV antibiotics -Strict I's & O's -Pain control -Monitor elizabeth drain output and color -PPI -Monitor Hgb -Further recommendations as per Dr. Lucas House PGY2
[2018-07-22] MEDS: Lactated Ringer's 1,000 ML IV SCH (13:18)
[2018-07-22] MEDS: Meropenem IV 1 gm in NS 50 ML IVPB SCH ×2 (13:18→21:25)
--- NOTE | 2018-07-22 16:01 | PN ---
Copied To: Shawna Ricci MD Attending MD: Shawna Ricci MD DATE: 07/22/2018 SUBJECTIVE: The patient is 82 years old, underwent laparoscopic cholecystectomy, doing well. She states she is hungry. No nausea or vomiting. No diarrhea. No shortness of breath. Does complain of some right upper abdominal discomfort where she has surgical intervention done. No fever or chills. PHYSICAL EXAMINATION: VITAL SIGNS: She is afebrile, pulse 61, respirations 20, blood pressure 109/65. LUNGS: Bilateral good airflow. No rhonchi or crackle. HEART: S1 and S2 audible. ABDOMEN: Soft. Palpable discomfort around umbilical area and right upper quadrant area. Bowel sounds are positive. EXTREMITIES: Bilateral legs, no edema. NEUROLOGICAL: She is awake, alert, oriented, communicative. LABORATORY EXAM: WBC 9.3, hemoglobin 10, hematocrit 32.3, platelet of 203. Chemistry: Sodium 141, potassium 4.3, chloride 107, CO2 of 23, BUN 16, creatinine 0.8. Blood sugar 86. AST 91, ALT 75. Alk phos is 65. ASSESSMENT: 1. Acute cholecystitis. 2. Pyelonephritis. 3. Leukocytosis that has resolved. 4. Abnormal liver function test because of recent surgical intervention. PLAN: We will advance diet, give low fat. Discontinue telemetry. Advance the diet. Encourage ambulation. If she is okay, possible discharge plan in a.m. Shawna Ricci MD
[2018-07-22 17:37] LABS: HEPATITIS B SURFACE AG Negative (NEGATIVE)
[2018-07-22 17:42] LABS: HEPATITIS A IGM NEGATIVE (NEGATIVE); HEPATITIS B CORE AB NEGATIVE (NEGATIVE)
[2018-07-22 17:54] LABS: HEPATITIS C ANTIBODY NEGATIVE (NEGATIVE)
[2018-07-23] MEDS: HYDROmorphone 0.5 mg/0.5 ml ISec IVP PRN ×2 (00:28→08:26)
[2018-07-23] MEDS: Lactated Ringer's 1,000 ML IV SCH ×2 (02:50→20:24)
[2018-07-23] MEDS: Meropenem IV 1 gm in NS 50 ML IVPB SCH ×3 (06:10→22:47)
--- NOTE | 2018-07-23 07:56 | CP.PCM.PN ---
Subjective - Date & Time of Evaluation Date of Evaluation: 07/23/18 Time of Evaluation: 07:00 - Subjective Subjective: Stable on 2R s/p lap maru with IOC. No CP, SOB. Constipated/uncomfortable this AM. V/S noted. PE: Lungs: clear Cor.: S1S2 Abd.: tender Ext.: no edema Neuro.: alert I/O = 1410/625 Labs 07/22 noted. BC X2 NG at 5 days Urine C+S: + GNR HIDA: non-viz c/w acute cholecystitis Objective - Vital Signs/Intake and Output Vital Signs (last 24 hours): Temp Pulse Resp BP Pulse Ox 98 F 78 18 166/75 H 96 07/22/18 18:42 07/22/18 18:42 07/22/18 18:42 07/22/18 18:42 07/22/18 18:42 Intake and Output: 07/23/18 07/23/18 06:59 18:59 Intake Total 1290 Output Total 30 Balance 1260 - Medications Medications: Current Medications Hydromorphone HCl (Dilaudid) 0.5 mg IVP Q6H PRN PRN Reason: Pain, severe (8-10) Last Admin: 07/23/18 00:28 Dose: 0.5 mg Meropenem (Merrem Iv 1 Gm Premix) 50 mls @ 100 mls/hr IVPB Q8 ROSALINDA PRN Reason: Protocol Stop: 07/31/18 14:01 Last Admin: 07/23/18 06:10 Dose: 100 mls/hr Lactated Ringer's (Lactated Ringer's) 1,000 mls @ 75 mls/hr IV .[id number] [facility] Last Admin: 07/23/18 02:50 Dose: 75 mls/hr Levalbuterol HCl (Xopenex) 1.25 mg IH [id number] PRN PRN Reason: Shortness of Breath Ondansetron HCl (Zofran Inj) 4 mg IVP Q4H PRN PRN Reason: Nausea/Vomiting Last Admin: 07/21/18 19:03 Dose: 4 mg Oxycodone/Acetaminophen (Percocet 5/325 Mg Tab) 1 tab PO Q4H PRN PRN Reason: Pain, moderate (4-7) Stop: 07/24/18 17:53 Last Admin: 07/22/18 18:31 Dose: 1 tab Pantoprazole Sodium (Protonix Inj) 40 mg IVP DAILY [facility]ALINDA Last Admin: 07/22/18 14:00 Dose: 40 mg - Labs Labs: 07/22/18 05:40 07/22/18 05:40 PT 14.7 SECONDS (9.4-12.5) H 07/21/18 05:50 INR 1.27 07/21/18 05:50 APTT 28.2 Seconds (25.1-36.5) 07/21/18 05:50 Assessment and Plan - Assessment and Plan (Free Text) Assessment: Abdominal Pain, Nausea, Vomiting, hypotension initially Sepsis UTI Gall stones/Acute cholecystitis/S/P lap maru with IOC 07/21/18 Moderate MR Asthma Diverticulosis GERD Shingles S/P hysterectomy, AP Right TKR Plan: Post op care as per Dr. Zavala/team AB RX. for constipation. As per ID, Drs. Ricci and Coleen
[2018-07-23 08:18] VITALS: RESP 20
--- NOTE | 2018-07-23 08:46 | CP.PCM.PN ---
Subjective - Date & Time of Evaluation Date of Evaluation: 07/23/18 Time of Evaluation: 07:00 - Subjective Subjective: Surgery: Dr. Zavala Pt seen and examined. No acute overnight events. Pt states she feels ok but has some increased pain around her incisions. She admits to tolerating her liquid diet and denies N/V. Denies flatus/BM, denies fevers/chills. Objective - Vital Signs/Intake and Output Vital Signs (last 24 hours): Temp Pulse Resp BP Pulse Ox 98.1 F 87 20 158/76 H 93 L 07/23/18 08:18 07/23/18 08:18 07/23/18 08:18 07/23/18 08:18 07/23/18 08:18 Intake and Output: 07/23/18 07/23/18 06:59 18:59 Intake Total 1290 Output Total 30 Balance 1260 - Medications Medications: Current Medications Hydromorphone HCl (Dilaudid) 0.5 mg IVP Q6H PRN PRN Reason: Pain, severe (8-10) Last Admin: 07/23/18 08:26 Dose: 0.5 mg Meropenem (Merrem Iv 1 Gm Premix) 50 mls @ 100 mls/hr IVPB Q8 ROSALINDA PRN Reason: Protocol Stop: 07/31/18 14:01 Last Admin: 07/23/18 06:10 Dose: 100 mls/hr Lactated Ringer's (Lactated Ringer's) 1,000 mls @ 75 mls/hr IV .[id number] [facility] Last Admin: 07/23/18 02:50 Dose: 75 mls/hr Levalbuterol HCl (Xopenex) 1.25 mg IH [id number] PRN PRN Reason: Shortness of Breath Ondansetron HCl (Zofran Inj) 4 mg IVP Q4H PRN PRN Reason: Nausea/Vomiting Last Admin: 07/23/18 08:25 Dose: 4 mg Oxycodone/Acetaminophen (Percocet 5/325 Mg Tab) 1 tab PO Q4H PRN PRN Reason: Pain, moderate (4-7) Stop: 07/24/18 17:53 Last Admin: 07/22/18 18:31 Dose: 1 tab Pantoprazole Sodium (Protonix Inj) 40 mg IVP DAILY [facility] Last Admin: 07/22/18 14:00 Dose: 40 mg Polyethylene Glycol (Miralax) 17 gm PO DAILY ROSALINDA - Labs Labs: 07/22/18 05:40 07/22/18 05:40 PT 14.7 SECONDS (9.4-12.5) H 07/21/18 05:50 INR 1.27 07/21/18 05:50 APTT 28.2 Seconds (25.1-36.5) 07/21/18 05:50 - Constitutional Appears: Well, No Acute Distress - Head Exam Head Exam: ATRAUMATIC, NORMOCEPHALIC - ENT Exam ENT Exam: Mucous Membranes Dry - Respiratory Exam Respiratory Exam: NORMAL BREATHING PATTERN - Cardiovascular Exam Cardiovascular Exam: RRR - GI/Abdominal Exam GI & Abdominal Exam: Soft, Tenderness (around incision sites, clean/dry/intact with omega in place. 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 Lucas Blue
[2018-07-23] MEDS ORDERED: POLYETHYLENE GLYCOL 3350 17 GM/Dose PACKET PO SCH (10:00)
[2018-07-23] MEDS ORDERED: POLYETHYLENE GLYCOL 3350 17 GM/Dose PACKET PO ONE (10:10)
[2018-07-23 11:04] LABS: BASO # 0.01 K/mm3 (0.0-2.0); BASO % 0.1 % (0.0-3.0); EOS # 0.2 (0.0-0.7); EOS % 1.9 % (1.5-5.0); GRAN # 10.32 (1.4-6.5); GRAN % 84.5 % (50.0-68.0); HEMOGLOBIN 10.2 g/dL (12.0-16.0); LYMPH # 1.1 (1.2-3.4); LYMPH % 9.2 % (22.0-35.0); MEAN CELL VOLUME 77.4 fl (80.0-105.0); MEAN CORPUSCULAR HEMOGLOBIN 24.3 pg (25.0-35.0); MEAN CORPUSCULAR HGB CONC 31.4 g/dl (31.0-37.0); MEAN PLATELET VOLUME 9.7 fl (7.0-11.0); MONO # 0.5 (0.1-0.6); MONO % 4.3 % (1.0-6.0); RBC 4.2 10^6/uL (3.5-6.1); RED CELL DISTRIBUTION WIDTH 19.9 % (11.5-14.5); WHITE BLOOD COUNT 12.2 10^3/ul (4.5-11.0)
[2018-07-23 11:20] LABS: ALBUMIN 3.2 g/dL (3.0-4.8); ALT/SGPT 60 U/L (7-56); AST/SGOT 49 U/L (14-36); BLOOD UREA NITROGEN 12 mg/dL (7-21); GFR NON-AFRICAN AMERICAN 60
--- NOTE | 2018-07-23 14:03 | PN ---
Copied To: Shawna Ricci MD Attending MD: Shawna Ricci MD DATE: 07/23/2018 SUBJECTIVE: Patient is 82 years old, seen and examined, doing well, complained of having rectal discomfort because of constipation. PHYSICAL EXAMINATION: VITAL SIGNS: She is afebrile. Pulse 87, respirations 20, and blood pressure 158/76. LUNGS: Bilateral fair airflow. No rhonchi, no crackle. HEART: S1 and S2 audible. ABDOMEN: Soft, slight left lower quadrant discomfort. NEUROLOGIC: She is awake, alert, oriented, and communicative. LABORATORY EXAM: WBC 12.2, hemoglobin 10, hematocrit 32, and platelets of 266. Chemistries: Sodium 136, potassium 3.9, chloride 100, CO2 BUN 12, creatinine 0.9. Blood sugar 112. Phosphorus is 2.3. AST 49, ALT 60. ASSESSMENT: 1. Status post laparoscopic cholecystectomy. 2. Constipation secondary to narcotics. 3. Hypertension. PLAN: We will give her one dose of Relistor and continue her on nebulizer treatment. She is advised to have incentive spirometry, continue on meropenem. She is currently on IV fluids, we will continue that. Her diet will be advanced today for lunch and then we will monitor her CBC and CMP in the morning. If she remains stable, possible discharge in the a.m. Shawna Ricci MD
--- NOTE | 2018-07-23 16:12 | CP.PCM.PN ---
Subjective - Date & Time of Evaluation Date of Evaluation: 07/23/18 Time of Evaluation: 11:10 - Subjective Subjective: Patient is still having constipation, no fevers, no increase in abdominal pain, no headache or nausea. Objective - Vital Signs/Intake and Output Vital Signs (last 24 hours): Temp Pulse Resp BP Pulse Ox 98.1 F 87 20 158/76 H 93 L 07/23/18 08:18 07/23/18 08:18 07/23/18 08:18 07/23/18 08:18 07/23/18 08:18 Intake and Output: 07/23/18 07/23/18 06:59 18:59 Intake Total 1290 Output Total 30 Balance 1260 - Medications Medications: Current Medications Hydromorphone HCl (Dilaudid) 0.5 mg IVP Q6H PRN PRN Reason: Pain, severe (8-10) Last Admin: 07/23/18 08:26 Dose: 0.5 mg Meropenem (Merrem Iv 1 Gm Premix) 50 mls @ 100 mls/hr IVPB Q8 ROSALINDA PRN Reason: Protocol Stop: 07/31/18 14:01 Last Admin: 07/23/18 06:10 Dose: 100 mls/hr Lactated Ringer's (Lactated Ringer's) 1,000 mls @ 75 mls/hr IV .[id number] [facility] Last Admin: 07/23/18 02:50 Dose: 75 mls/hr Levalbuterol HCl (Xopenex) 1.25 mg IH [id number] PRN PRN Reason: Shortness of Breath Ondansetron HCl (Zofran Inj) 4 mg IVP Q4H PRN PRN Reason: Nausea/Vomiting Last Admin: 07/23/18 08:25 Dose: 4 mg Oxycodone/Acetaminophen (Percocet 5/325 Mg Tab) 1 tab PO Q4H PRN PRN Reason: Pain, moderate (4-7) Stop: 07/24/18 17:53 Last Admin: 07/22/18 18:31 Dose: 1 tab Pantoprazole Sodium (Protonix Inj) 40 mg IVP DAILY [facility] Last Admin: 07/22/18 14:00 Dose: 40 mg Polyethylene Glycol (Miralax) 17 gm PO DAILY [facility] - Labs Labs: 07/22/18 05:40 07/22/18 05:40 PT 14.7 SECONDS (9.4-12.5) H 07/21/18 05:50 INR 1.27 07/21/18 05:50 APTT 28.2 Seconds (25.1-36.5) 07/21/18 05:50 - Constitutional Appears: Non-toxic, No Acute Distress, Chronically Ill - Head Exam Head Exam: NORMAL INSPECTION - Neck Exam Neck Exam: absent: Meningismus - Respiratory Exam Respiratory Exam: Decreased Breath Sounds - Cardiovascular Exam Cardiovascular Exam: +S1, +S2 - GI/Abdominal Exam GI & Abdominal Exam: Soft. absent: Tenderness Assessment and Plan - Assessment and Plan (Free Text) Plan: Assessment Severe sepsis due to acute cholecystitis, S/P cholecystectomy, possible UTI with gram negative bacilli as well POD #2 diverticulosis history of shingles gastritis chronic anemia asthma HTN Plan Continue Merrem day 6 - will observe clinically and if patient continues to be afebrile, no leukocytosis, may consider discontinuing antibiotics in the next 24 -48 hours will continue to monitor clinically
[2018-07-23] MEDS ORDERED: Potassium & Sodium Phosphate PO SCH (18:00)
[2018-07-24] MEDS: Meropenem IV 1 gm in NS 50 ML IVPB SCH (05:52)
[2018-07-24 06:50] LABS: BASO # 0.01 K/mm3 (0.0-2.0); BASO % 0.1 % (0.0-3.0); EOS # 0.3 (0.0-0.7); EOS % 3.8 % (1.5-5.0); GRAN # 5.4 (1.4-6.5); GRAN % 72.9 % (50.0-68.0); HEMOGLOBIN 8.4 g/dL (12.0-16.0); LYMPH # 0.9 (1.2-3.4); LYMPH % 11.6 % (22.0-35.0); MEAN CELL VOLUME 76.3 fl (80.0-105.0); MEAN CORPUSCULAR HEMOGLOBIN 24.3 pg (25.0-35.0); MEAN CORPUSCULAR HGB CONC 31.8 g/dl (31.0-37.0); MEAN PLATELET VOLUME 9.8 fl (7.0-11.0); MONO # 0.9 (0.1-0.6); MONO % 11.6 % (1.0-6.0); RBC 3.46 10^6/uL (3.5-6.1); RED CELL DISTRIBUTION WIDTH 20.1 % (11.5-14.5); WHITE BLOOD COUNT 7.4 10^3/ul (4.5-11.0)
[2018-07-24 06:57] VITALS: BP 131/59; PULSE 85; TEMP 98.5; O2SAT 91
[2018-07-24 06:59] LABS: ALB/GLOB RATIO 0.9 (1.1-1.8); ALBUMIN 2.4 g/dL (3.0-4.8); ALT/SGPT 47 U/L (7-56); AST/SGOT 38 U/L (14-36); BLOOD UREA NITROGEN 10 mg/dL (7-21); CALCIUM 7.9 mg/dL (8.4-10.5); GFR NON-AFRICAN AMERICAN 60
[2018-07-24] MEDS ORDERED: Pantoprazole 40 mg EC Tab PO SCH (07:30)
--- NOTE | 2018-07-24 07:36 | CP.PCM.PN ---
Subjective - Date & Time of Evaluation Date of Evaluation: 07/24/18 Time of Evaluation: 07:00 - Subjective Subjective: Stable on 3R s/p lap maru with IOC. No CP, SOB. + BM yesterday. V/S noted. PE: Lungs: clear Cor.: S1S2 Abd.: tender Ext.: no edema Neuro.: alert I/O = 1410/625 Labs noted: H/H = 8.4/26.4, CMP OK BC X2 NG at 5 days Urine C+S: + GNR HIDA: non-viz c/w acute cholecystitis Objective - Vital Signs/Intake and Output Vital Signs (last 24 hours): Temp Pulse Resp BP Pulse Ox 98.5 F 85 20 131/59 L 91 L 07/24/18 06:00 07/24/18 06:00 07/24/18 06:00 07/24/18 06:00 07/24/18 06:00 Intake and Output: 07/24/18 07/24/18 06:59 18:59 Intake Total 1005 Output Total 1050 Balance -45 - Medications Medications: Current Medications Meropenem (Merrem Iv 1 Gm Premix) 50 mls @ 100 mls/hr IVPB Q8 ROSALINDA PRN Reason: Protocol Stop: 07/31/18 14:01 Last Admin: 07/24/18 05:52 Dose: 100 mls/hr Lactated Ringer's (Lactated Ringer's) 1,000 mls @ 75 mls/hr IV .[id number] ROSALINDA Last Admin: 07/23/18 20:24 Dose: 75 mls/hr Levalbuterol HCl (Xopenex) 1.25 mg IH [id number] PRN PRN Reason: Shortness of Breath Ondansetron HCl (Zofran Inj) 4 mg IVP Q4H PRN PRN Reason: Nausea/Vomiting Last Admin: 07/23/18 08:25 Dose: 4 mg Oxycodone/Acetaminophen (Percocet 5/325 Mg Tab) 1 tab PO Q4H PRN PRN Reason: Pain, moderate (4-7) Stop: 07/24/18 17:53 Last Admin: 07/22/18 18:31 Dose: 1 tab Pantoprazole Sodium (Protonix Ec Tab) 40 mg PO ACB ROSALINDA Potassium Phos/Sodium Phos (Neutra-Phos) 1 pkt PO BID ROSALINDA - Labs Labs: 07/24/18 05:45 07/24/18 05:45 PT 14.7 SECONDS (9.4-12.5) H 07/21/18 05:50 INR 1.27 07/21/18 05:50 APTT 28.2 Seconds (25.1-36.5) 07/21/18 05:50 Assessment and Plan - Assessment and Plan (Free Text) Assessment: Abdominal Pain, Nausea, Vomiting, hypotension initially Sepsis UTI Gall stones/Acute cholecystitis/S/P lap maru with IOC 07/21/18 Moderate MR Asthma Diverticulosis GERD Shingles S/P hysterectomy, AP Right TKR Plan: Post op care as per Dr. Zavala/team AB as per ID As per Dr. Ricci. Home soon.
--- NOTE | 2018-07-24 12:48 | DS ---
Copied To: Shawna Ricci MD Attending MD: Shawna Ricci MD HISTORY OF PRESENT ILLNESS: The patient is 82 years old, seen and examined. Initially, she was admitted with diffuse abdominal pain, had CT scan done and urinalysis shows UTI plus she has acute cholecystitis upon HIDA scan. She came with WBC count of 25,800. The patient was started on IV antibiotics. She started to respond. HIDA scan shows nonvisualized gallbladder, so she was taken to OR, had laparoscopic cholecystectomy done, doing well, eating and tolerating, had bowel movement yesterday. PHYSICAL EXAMINATION: VITAL SIGNS: She is afebrile, pulse 85, respirations 20, blood pressure 131/59. LUNGS: Bilateral good airflow. No rhonchi or crackle. HEART: S1 and S2 audible. ABDOMEN: Soft. Nontender. No rebound. No guarding. NEUROLOGICAL: She is awake, alert, oriented, communicative. LABORATORY EXAM: WBC is 9.3, hemoglobin 10, hematocrit 32.3, platelet Of 203. Chemistry: Sodium 139, potassium 4, chloride 105, CO2 of 29, BUN 10, creatinine 0.9, blood sugar of 90, AST 38. ASSESSMENT: 1. Acute cholecystitis, status post cholecystectomy. 2. Leukocytosis, that has resolved. 3. History of gastritis. PLAN: The patient finished 7 days of antibiotic. Her OR cultures are negative. She does not need any more antibiotic as per surgical and ID team. She will be discharged home. She will take Prevacid and she will take Advil as needed. Shawna Ricci MD
--- NOTE | 2018-07-24 13:43 | CP.PCM.PN ---
Subjective - Date & Time of Evaluation Date of Evaluation: 07/24/18 Time of Evaluation: 07:00 - Subjective Subjective: Surgery: Dr. Zavala Pt seen and examined. No acute overnight events. States she feels well this morning and her pain is well controlled. She is tolerating her diet and having BMs after she was given an enema yesterday. Denies N/V, fevers/chills. Objective - Vital Signs/Intake and Output Vital Signs (last 24 hours): Temp Pulse Resp BP Pulse Ox 98.5 F 85 20 131/59 L 91 L 07/24/18 06:00 07/24/18 06:00 07/24/18 06:00 07/24/18 06:00 07/24/18 06:00 Intake and Output: 07/24/18 07/24/18 06:59 18:59 Intake Total 1005 Output Total 1050 Balance -45 - Medications Medications: Current Medications Meropenem (Merrem Iv 1 Gm Premix) 50 mls @ 100 mls/hr IVPB Q8 ROSALINDA PRN Reason: Protocol Stop: 07/31/18 14:01 Last Admin: 07/24/18 05:52 Dose: 100 mls/hr Levalbuterol HCl (Xopenex) 1.25 mg IH [id number] PRN PRN Reason: Shortness of Breath Ondansetron HCl (Zofran Inj) 4 mg IVP Q4H PRN PRN Reason: Nausea/Vomiting Last Admin: 07/23/18 08:25 Dose: 4 mg Oxycodone/Acetaminophen (Percocet 5/325 Mg Tab) 1 tab PO Q4H PRN PRN Reason: Pain, moderate (4-7) Stop: 07/24/18 17:53 Last Admin: 07/22/18 18:31 Dose: 1 tab Pantoprazole Sodium (Protonix Ec Tab) 40 mg PO ACB [facility] Last Admin: 07/24/18 09:29 Dose: 40 mg Potassium Phos/Sodium Phos (Neutra-Phos) 1 pkt PO BID [facility] Last Admin: 07/24/18 09:29 Dose: 1 pkt - Labs Labs: 07/24/18 05:45 07/24/18 05:45 PT 14.7 SECONDS (9.4-12.5) H 07/21/18 05:50 INR 1.27 07/21/18 05:50 APTT 28.2 Seconds (25.1-36.5) 07/21/18 05:50 - Constitutional Appears: Well, No Acute Distress - Eye Exam Eye Exam: Normal appearance - ENT Exam ENT Exam: Mucous Membranes Moist - Respiratory Exam Respiratory Exam: NORMAL BREATHING PATTERN - Cardiovascular Exam Cardiovascular Exam: RRR - GI/Abdominal Exam GI & Abdominal Exam: Soft, Tenderness (around incisions). absent: Distended, Guarding Additional comments: Hermilo drain with dark serosang output, 50cc/24hrs - Neurological Exam Neurological Exam: Alert, Awake, Oriented x3 - Skin Skin Exam: Dry, Intact, Warm Assessment and Plan - Assessment and Plan (Free Text) Assessment: 82F s/p lap maru with IOC; POD#3 Plan: ok to DC home with f/u in the office with Dr. Zavala remove drain before DC ok to shower d/w Dr. Lucas Blue
--- NOTE | 2018-08-05 19:30 | OP ---
Copied To: Feroz Zavala MD Attending MD: Feroz Zavala MD PROCEDURE DATE: 07/21/2018 SURGEON: Feroz Zavala MD. CABINETMAKER APPRENTICE: Fortunato Hernandez DO, PGY-2. SECOND CABINETMAKER APPRENTICE: Jayshree Blue DO, PGY3. ANESTHESIA ADMINISTERED BY: Dr. Yee. TYPE OF ANESTHESIA: General endotracheal - 20 mL. PREOPERATIVE DIAGNOSIS: Acute cholecystitis - cholelithiasis. POSTOPERATIVE DIAGNOSIS: Acute cholecystitis - cholelithiasis. PROCEDURE: Laparoscopic cholecystectomy with intraoperative cholangiography. OPERATIVE INDICATIONS: The patient is an 82-year-old female who has had a right upper quadrant pain prior to admission, having been seen by a resident assistant in [place] and diagnosed as shingles, several days passed and she did not develop the rash and saw primary care physician, Dr. Shawna Ricci, who recommended the patient be admitted immediately through the ER. Since admission, the patient has been on antibiotics, bowel rest, and has undergone significant improvement, but the patient has notified us that she is not going home to return later and have her gallbladder out in the future, the pain is still there and the patient is guarding as well as the demonstrating improvement in the white count down from 27,000 to below 10,000. Nuclear HIDA scanning demonstrates obstruction of the cystic duct. CAT scan and ultrasound failed to demonstrate any common duct dilatation. The patient is advised to surgery including the risks, the benefits, the alternatives, and their anticipated outcomes. After all this, the patient signs the informed consent. OPERATIVE NOTE: The patient was brought to the operating room from the same-day holding area. She undergoes time-out procedure and identification of her wristband. She is placed on the operative table, undergoes the induction of general anesthesia and the insertion of an endotracheal tube. Sequential compression devices are placed on her lower extremities and the abdomen is prepped with Hibiclens-chlorhexidine preparation and then aseptically draped. The umbilicus is elevated on towel clips, infiltrated with the 0.5% bupivacaine and an incision made and a Veress needle inserted into the peritoneal cavity and the abdomen insufflated with carbon dioxide gas to 14 mmHg pressure. At this point, the needle was removed and the 11 mm port is inserted under direct vision and the Storz operating laparoscope inserted into same. The abdomen was explored and requires a second 11 mm port placed in the right subxiphoid location in a similar manner with direct vision. Two 5 mm ports were placed in the right upper quadrant at the level of the umbilicus and the patient is rotated to a left lateral Luna position with reverse Trendelenburg positioning. The inflammation of the omentum to the gallbladder is bluntly retracted with Prestige clamps and the gallbladder is aspirated approximately 80 mL of black, purulent, malodorous fluid. This is submitted to the laboratory for aerobic and anaerobic culture. The needle is removed and the gallbladder grasped with Prestige clamps and adhesions to the gallbladder are bluntly and sharply retracted and coagulated. The dissection is carried on down to the fundus of the gallbladder and to the end where the cystic duct and cystic artery are presumptively to be found. Video photo documentation is obtained for the hospital record and the cystic duct is dissected free very carefully and meticulously and the cystic artery is then visualized with further meticulous dissection. This critical view of safety is confirmed and satisfied all the operators at the at the operating field and the cystic duct is doubly hemoclipped at the gallbladder edge, incised, and an intraoperative Cholangiocath inserted. Balloon inflated and contrast injected into the common duct, demonstrating free flow of contrast into the duodenum and no dilatation or obstruction - stone seen in the common duct. The catheter is now removed and the distal cystic duct is triply hemoclipped and then transected. The cystic artery is cleaned somewhat further, doubly hemoclipped on either side, and then transected. The gallbladder is now removed from the liver bed utilizing prograde dissection with extensive electrocoagulation. This is required because of the acute inflammatory reaction that is present at this time. Gallbladder wall is quite thick; however, there is a tiny leakage at two separate times during the procedure and through the defect in the wall, the mulberry stone is visualized, but never reached the gallbladder. The gallbladder is now gently retracted off the liver bed, electrocoagulated for hemostatic control, and eventually the gallbladder is removed, placed in an EndoCatch bag and brought up to the subxiphoid port site where the extreme size of the stones prevented from passing through the abdominal wall and requires enlargement of the incision to allow passage of the EndoCatch with the two stones measuring approximately 5 cm across. Once the gallbladder and stones are removed, they are maintained on a separate sterile table for examination later and the incision is electrofulgurated to prevent further bleeding and this incision is utilized to allow for a placement of Avitene and Gelfoam packing in the liver bed to help control any further leakage and bleeding. The 11 mm port is reinserted and towel clip is utilized to provide an air seal and a 15-Romansh Hermilo suction drain is inserted into the lateral 5 mm port and under direct vision, placed along the gutter and into the hepatorenal space of Yoon. The drain is sutured in place with 2-0 Tevdek permanent suture and clamped to prevent air leak. Copious lavage of the area is employed, cleaning any spill and retained blood. The umbilical port site is closed with interrupted 2-0 polyester absorbable suture and the similar incision at the epigastric area is closed likewise with the 2-0 PDS [id number] sutures. Infiltrated fascia and skin with the Exparel 72-hour anesthetic and the wounds lavaged afterwards with saline and approximated with 3-0 Polysorb subcutaneous approximation and the skin with the AutoSuture skin stapler. A dry dressing is applied. The patient is awakened, then extubated, and transported to the recovery room in a satisfactory condition. Sponge, instrument, and suture count were correct at the end of the procedure. The dictation will be electronically signed without being read. The surgical assistants were present throughout the procedure from beginning to end and were critical in the assistance of the extremely difficult exposure. Feroz Zavala MD
== END 2018-07-24 13:59 | disposition home or self-care (01) | DRG 854 ==
LOC: ED 16:27 → ERH 21:26 → 2RNO 22:50 → 3RNO 07-22 17:50
PROVIDERS: ADMIT Internal Medicine; ATTEND Internal Medicine
PROC: BF131ZZ Fluoroscopy of Gallbladder and Bile Ducts using Low Osmolar Contrast (ICD-10-PCS; 2018-07-21)
PROC: 0FT44ZZ Resection of Gallbladder, Percutaneous Endoscopic Approach (ICD-10-PCS; principal; 2018-07-21 13:30)
DX: A41.9 Sepsis, unspecified organism (principal); K80.12 Calculus of gallbladder with acute and chronic cholecystitis without obstruction; N12 Tubulo-interstitial nephritis, not specified as acute or chronic; N17.9 Acute kidney failure, unspecified; R65.20 Severe sepsis without septic shock; E86.0 Dehydration; B96.20 Unspecified Escherichia coli [E. coli] as the cause of diseases classified elsewhere; I10 Essential (primary) hypertension; K21.9 Gastro-esophageal reflux disease without esophagitis; K29.70 Gastritis, unspecified, without bleeding; K57.90 Diverticulosis of intestine, part unspecified, without perforation or abscess without bleeding; K59.03 Drug induced constipation; T40.605A Adverse effect of unspecified narcotics, initial encounter; I34.0 Nonrheumatic mitral (valve) insufficiency; E87.8 Other disorders of electrolyte and fluid balance, not elsewhere classified; B02.9 Zoster without complications; J45.909 Unspecified asthma, uncomplicated; D64.9 Anemia, unspecified; Z96.651 Presence of right artificial knee joint; Z87.891 Personal history of nicotine dependence; Z88.0 Allergy status to penicillin; Z88.2 Allergy status to sulfonamides; Z85.42 Personal history of malignant neoplasm of other parts of uterus

== ENCOUNTER 2019-01-14 16:38 | Outpatient (CLI) | payer MEDICARE | END 2019-01-14 16:39 | disposition home or self-care (01) | LOC: RAD 16:38 | DX: J45.40 Moderate persistent asthma, uncomplicated (principal); Z87.891 Personal history of nicotine dependence ==